=== PATIENT | male | born 1945 | race Caucasian/White ===

== ENCOUNTER 2016-10-16 07:02 | Emergency (ER) | payer MEDICARE ==
[2016-10-16] MEDS ORDERED: Ketorolac INJ* 30 MG/ML 1 ML VIAL IM ONE (07:38)
[2016-10-16] MEDS ORDERED: HYDROcodone/ACETAMIN 5-325 MG* 1 TAB PO ONE (08:30)
--- NOTE | 2016-10-16 08:44 | UC ---
Gris Weldon Edward, scribed for Senait Nick MD on 10/16/16 at 0710 . Upper Extremity HPI - HPI Summary HPI Summary: 71 y/o male presents to ED with left upper back pain and now shooting L arm pain. Patient's arm pain started out as soreness following an injury one week ago, but became worse last night. The pain starts in the back of the L shoulder and radiates down the L arm. Patient states a tree fell on the patient one week ago. He was cutting down a tree when it split and fell on the patient's R shoulder and face, knocking the patient to the ground. No LOC. No blood HEENT. The patient was standing on the ground when it happened and was wearing a helmet. PT wsa able to get up unassisted and continued to cut down trees. pt states has been stiff in his upper back since. PT states has been sleeping in a chair as has difficulty time getting comfortable. Pt states pain shoots from neck to left elbow along medial aspect. No extremity or hand weakness. No PATEL, vision changes. he patient states he was sore but was not in pain immediately after the accident. Pt states too APAP at 530 with little relif. Associated sx: ecchymosis on the R ear. Denies changes in color to the hands, nausea, diaphoresis, SOB and CP, abdominal pain. Pt is on ASA 81mg. PMHx DM, cardiac disease. Past medications reviewed upon visit. - History of Current Complaint Stated Complaint: LEFT ARM PAIN Hx Obtained From: Patient Onset/Duration: Gradual Onset, Lasting Hours - PAin started last night, Still Present Location Of Pain: Is Discrete @ - Back of R shoulder, Radiates To - Down L arm Associated Signs And Symptoms: Positive: Negative - No nausea, CP, SOB, diaphoresis Related History: Dominant Hand Right - Allergies/Home Medications Allergies/Adverse Reactions: Allergies Allergy/AdvReac Type Severity Reaction Status Date / Time Penicillins Allergy Unknown Rash Verified 10/16/16 07:19 Home Medications: Home Medications Acetaminophen [Tylenol] 975 mg PO Q6H PRN 10/16/16 [History Confirmed 10/16/16] PMH/Surg Hx/FS Hx/Imm Hx - Additional Past Medical History Additional PMH: Positive: arthritis, carpal tunnel. Negative: ME, CHF, COPD Previously Healthy: No Endocrine History: Diabetes Cardiovascular History: Cardiac Disease, Other Other Cardiovascular History: Heart Murmurs, Peripheral Vascular Disease Respiratory History: Pneumonia - Surgical History Surgical History: Yes Surgery Procedure, Year, and Place: OPEN HEART, aortic valve replacement, bilateral knee replacements - Family History Known Family History: Positive: Hypertension, Diabetes - Social History Occupation: Retired Lives: With Family Alcohol Use: None Substance Use Type: None Smoking Status (MU): Former Smoker Type: Cigarettes Amount Used/How Often: QUIT IN 1991 Review of Systems Constitutional: Negative Skin: Bruising - R ear Eyes: Negative ENT: Negative Respiratory: Negative - No SOB Cardiovascular: Negative - No CP Gastrointestinal: Negative - No nausea Genitourinary: Negative Motor: Negative Neurovascular: Negative Musculoskeletal: Myalgia - Pain in back of R shoulder radiating down to the L arm Neurological: Other - Dizziness immediately after the injury. None now Psychological: Negative All Other Systems Reviewed And Are Negative: Yes Physical Exam Triage Information Reviewed: Yes Appearance: Well-Appearing, Pain Distress - with movement Vital Signs: Initial Vital Signs Temp 97.8 F 10/16/16 07:04 Pulse 49 10/16/16 07:04 Resp 16 10/16/16 07:04 BP 147/81 10/16/16 07:04 Pulse Ox 96 10/16/16 07:04 Eye Exam: Normal ENT Exam: Normal ENT: Positive: Hearing grossly normal - assist devices, Pharynx normal, TMs normal Dental Exam: Normal Neck: Positive: Supple, Nontender - mild TTP left paracervical to left trapezius Pain increases with ROM of c spine and movement of LUE Respiratory Exam: Normal Respiratory: Positive: Chest non-tender, Lungs clear, Normal breath sounds, No respiratory distress Cardiovascular Exam: Normal Cardiovascular: Positive: RRR, No Murmur, Pulses Normal, Brisk Capillary Refill Abdominal Exam: Normal Abdomen Description: Positive: Nontender, No Organomegaly, Soft Bowel Sounds: Positive: Present Musculoskeletal: Positive: Other: - No pain spinous process c/t/l/s + TTP left paraspinal cervical on the left Pain increases with right lateral rotation to right and full flexion Pain increases over trapezius with abductioin left shoulder full flex/ext shoulder, elbow + supinate/pronate Neurological Exam: Normal Neurological: Positive: Other: - + thumb up, a ok, finger spread, finger cross When pt lateral rotates neck recreates paresthesia lue to medial ascpect elbow Psychological Exam: Normal Psychological: Positive: Normal Response To Family Skin Exam: Normal Skin: Positive: Other - small contusion left upper ear - no abrasion Diagnostics - Radiology CXR Xray Interpretation: Positive (See Comments) - Cardiomegaly with interstitial edema consistent with CHF. Radiology Interpretation Completed By: Radiologist CERVICAL SPINE XRAY Xray Interpretation: No Acute Changes - Limited examination of the cervical spine with degenerative disc disease. Radiology Interpretation Completed By: Radiologist - EKG Cardiac Rate: Bradycardia Cardiac Rhythm: Sinus: Normal - 07:06 - RBBB, no acute changes from 03/09/16. Re-Evaluation - Re-Evaluation 1 Re-Evaluation Time: 08:25 Change: Improved - with Toradol will place in sling give Jefferson ( driving) awaiting imaging Second Eval Re-Evaluation Time: 09:25 Change: Improved - Pt markedly improved following sling and Jefferson Reviewed images with pt and spouse - aware of limitation second to habitus and CHF Pt without sob, peripheral edema. Pt is on Lasix reviewed with pt Jefferson heat stretch and pcp f.u return precautions discussed pt comfortable and in agreement with plan Upper Extremity Course/Dx - Course Course Of Treatment: 71 y/o male presents to ED with L arm pain and left upper trapezius pain. Patient's arm pain started out as soreness following an injury one week ago, but became worse last night. The pain starts in the back of the L shoulder and radiates down the L arm. Exam reveals left trapezius pain and spasm, mild left cervical paraspinal pain. Pt neurologically intact with reproducible pain and radiculopathy with movement. In the UC course, patient was given Toradol. On re-eval @ 08:31, patient notes slight relief from Toradol. Patient will be given hydrocodone and an arm sling with marked improvement. imaging did not reveal acute fx although somewhat limted second to habitus. reviewed with pt limitation as well as chf on CXR - Pt to call PCP on Tuesday. Pt was discharged home. heat. stretch. sling for comfort. Jefferson (reviewed med, precautions). Blood pressure noted and patient informed to follow up with PCP. PT and comfortable and in agreement with plan - Differential Dx/Diagnosis Provider Diagnoses: muscle spasm, radicular pain LUE Discharge - Discharge Plan Condition: Stable Disposition: HOME Prescriptions: HYDROcodone/ACETAMIN 5-325 MG* [Jefferson 5-325 TAB*] 1 - 2 tab PO Q6H PRN #15 tab MDD 8 PRN Reason: Pain Patient Education Materials: Muscle Spasm (ED), Cervical Radiculopathy (ED) Referrals: Riana Valdes MD [Primary Care Provider] - Additional Instructions: - Okay to take Jefferson (1-2 tablets) every 6 hours as needed for pain. This medication contains a narcotic. Do NOT drive, operate machinery, drink alcohol while taking Jefferson. This medication may cause constipation - use a stool softner daily while taking this medication - Apply heat (20 minutes at a time) 2-3 time a day - slow, gentle stretching exercises - Wear arm sling for support - Okay to take ibuprofen (advil, motrin) 400mg every 8 hours as needed - contact your doctor to schedule a follow-up appointment. Contact your doctor or return for increased pain, arm or leg weakness, shortness of breath, vomiting or any other questions or concerns The documentation as recorded by the Gris montiel Edward accurately reflects the service I personally performed and the decisions made by , Senait iNck MD.
--- NOTE | 2016-10-16 09:04 | RAD ---
Indication: Left-sided trapezius pain, back pain 3 views of the cervical spine demonstrates only the first 4 vertebral bodies to be visualized. Degenerative disc disease is noted with no fracture of C1-C4 identified. There is likely degenerative disc disease at C5-C6 and C3-C4. IMPRESSION: Limited examination of the cervical spine with degenerative disc disease.
--- NOTE | 2016-10-16 09:05 | RAD ---
Indication: Left paraspinal pain. 2 views of the chest are reviewed. Comparison is made with previous exam dated March 29, 2015. Interstitial edema consistent with CHF is noted. Cardiomegaly is noted. Patient is status post transsternal thoracotomy. IMPRESSION: Cardiomegaly with interstitial edema consistent with CHF.
[2016-10-16 09:46] VITALS: BP 160/85
== END 2016-10-16 09:40 | disposition home or self-care (01) ==
LOC: UCEAST 07:02
DX: M62.830 Muscle spasm of back (principal); M54.12 Radiculopathy, cervical region
CPT/HCPCS: 71020; 72040; 93005; 96372; 99213; G0463; J1885

== ENCOUNTER 2016-12-25 20:34 | Emergency (ER) | payer MEDICARE ==
[2016-12-25 20:42] VITALS: BP 156/83
--- NOTE | 2016-12-25 21:32 | RAD ---
Indication: RIGHT knee pain following injury. Bilateral knee replacement in 2006. Comparison: March 22, 2007 immediate postop exam. Technique: RIGHT knee: AP, tunnel, crosstable lateral, sunrise views. Report: Small joint effusion without gross fat fluid level. Negative for compelling stigmata of prosthesis loosening or periprosthetic fracture. Mild anterior soft tissue swelling. Vascular calcifications. IMPRESSION: Small joint effusion and anterior soft tissue swelling. Negative for fracture, stigmata of prosthesis loosening, or malalignment.
[2016-12-25] MEDS ORDERED: oxyCODONE/Acetamin 5/325 MG* TAB PO ONE (23:13)
[2016-12-26] MEDS ORDERED: oxyCODONE/Acetamin 5/325 MG* TAB PO ONE (00:06)
--- NOTE | 2016-12-26 00:08 | ED ---
Lower Extremity - HPI Summary HPI Summary: 71M presents with injury to right knee. 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 He has a prosthetic knee. He has 10/10 pain especially when he raises his leg. tetanus is up to date he believes. has abrasion on right taylor. was able to ambulate. pain is sharp and is over his patella. - History of Current Complaint Chief Complaint: EDExtremityLower Stated Complaint: TREE FELL/RIGHT KNEE INJURY Time Seen by Provider: 12/25/16 22:57 Pain Intensity: 8 - Allergies/Home Medications Allergies/Adverse Reactions: Allergies Allergy/AdvReac Type Severity Reaction Status Date / Time Penicillins Allergy Unknown Rash Verified 12/25/16 20:42 PMH/Surg Hx/FS Hx/Imm Hx Endocrine/Hematology History: Denies: Hx Diabetes, Hx Thyroid Disease Cardiovascular History: Reports: Hx Peripheral Vascular Disease, Other Cardiovascular Problems/Disorders - VALVE REPLACEMENT Denies: Hx Congestive Heart Failure, Hx Hypertension, Hx Pacemaker/ICD Respiratory History: Reports: Hx Chronic Obstructive Pulmonary Disease (COPD), Hx Pneumonia Denies: Hx Asthma Comment Only: Other Respiratory Problems/Disorders - Quit in 1991 GI History: Denies: Hx Ulcer History: Denies: Hx Dialysis, Hx Renal Disease Musculoskeletal History: Reports: Hx Arthritis - bilat knee replacement, Other Musculoskeletal History - carple tunel Sensory History: Reports: Hx Contacts or Glasses, Hx Macular Degeneration, Hx Hearing Problem Denies: Hx Cataracts, Hx Eye Injury, Hx Eye Prosthesis, Hx Glaucoma, Hx Vision Problem, Hx Deafness, Hx Hearing Aid Opthamlomology History: Reports: Hx Contacts or Glasses, Hx Macular Degeneration Denies: Hx Cataracts, Hx Eye Injury, Hx Eye Prosthesis, Hx Glaucoma, Hx Vision Problem Neurological History: Denies: Hx Dementia, Hx Developmental Delay, Hx Headaches, Hx Migraine, Hx Nerve Disease, Hx Seizures, Hx Spinal Cord Injury, Hx Transient Ischemic Attacks (TIA) - Surgical History Surgery Procedure, Year, and Place: OPEN HEART, aortic valve replacement, bilateral knee replacements Hx Anesthesia Reactions: No Infectious Disease History: No Infectious Disease History: Denies: Hx Hepatitis, Hx Human Immunodeficiency Virus (HIV), Hx Shingles, Hx Tuberculosis, Traveled Outside the [place] in Last 30 Days - Family History Known Family History: Positive: Hypertension, Diabetes - Social History Alcohol Use: None Substance Use Type: Reports: None Hx Tobacco Use: Yes Smoking Status (MU): Former Smoker Type: Cigarettes Amount Used/How Often: QUIT IN 1991 Review of Systems Negative: Fever Negative: Chest Pain Negative: Shortness Of Breath Positive: Myalgia - right knee All Other Systems Reviewed And Are Negative: Yes Physical Exam Triage Information Reviewed: Yes Vital Signs On Initial Exam: Initial Vitals Temp Pulse Resp BP Pulse Ox 98.3 F 66 18 156/83 99 12/25/16 20:36 12/25/16 20:36 12/25/16 20:36 12/25/16 20:36 12/25/16 20:36 Vital Signs Reviewed: Yes Appearance: Positive: Well-Appearing Skin: Positive: Warm, Dry Head/Face: Positive: Normal Head/Face Inspection Eyes: Positive: Normal, Conjunctiva Clear Respiratory/Lung Sounds: Positive: Clear to Auscultation, Breath Sounds Present Cardiovascular: Positive: Normal, RRR Musculoskeletal: Positive: Strength/ROM Intact - right knee, Edema Right - knee , Other - abrasion to taylor of right knee, good pulses, tender over right knee - Edmond Coma Scale Coma Scale Total: 15 Diagnostics - Vital Signs Vital Signs Temp Pulse Resp BP Pulse Ox 12/26/16 00:01 18 12/25/16 20:36 98.3 F 66 18 156/83 99 - Laboratory Lab Statement: Any lab studies that have been ordered have been reviewed, and results considered in the medical decision making process. - Radiology knee Xray Interpretation: No Acute Changes - IMPRESSION: Small joint effusion and anterior soft tissue swelling. Negative for fracture, stigmata of prosthesis loosening, or malalignment. Radiology Interpretation Completed By: Radiologist Lower Extremity Course/Dx - Course Course Of Treatment: 71M presents with injury to right knee. 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 He has a prosthetic knee. He has 10/10 pain especially when he raises his leg. tetanus is up to date he believes. has abrasion on right taylor. was able to ambulate. pain is sharp and is over his patella. xray normal. cleaned abrasions. patient states is to much pain so will give short course of pain medication. patient understands and agrees with plan. - Diagnoses Differential Diagnosis/HQI/PQRI: Positive: Contusion, Fracture (Closed), Sprain , Strain Provider Diagnoses: Right knee injury Discharge - Discharge Plan Condition: Good Disposition: HOME Prescriptions: oxyCODONE/Acetamin 5/325 MG* [Percocet 5/325 TAB*] 1 tab PO Q6H PRN #8 tab MDD 4 PRN Reason: Pain Patient Education Materials: Knee Pain (ED) Referrals: Riana Valdes MD [Primary Care Provider] - Additional Instructions: Take Tylenol every 6 hours as needed for pain Apply ice, rest, elevate Follow up with primary care physician within 5 days Return to ED if develop any new or worsening symptoms
== END 2016-12-26 00:20 | disposition home or self-care (01) ==
LOC: ED 20:34
DX: S89.91XA Unspecified injury of right lower leg, initial encounter (principal); W20.8XXA Other cause of strike by thrown, projected or falling object, initial encounter; Y93.H2 Activity, gardening and landscaping; Y92.9 Unspecified place or not applicable; I73.9 Peripheral vascular disease, unspecified; Z96.653 Presence of artificial knee joint, bilateral; Z87.891 Personal history of nicotine dependence
CPT/HCPCS: 99282; A9270-GY

== ENCOUNTER 2018-05-12 10:07 | Emergency (ER) | payer MEDICARE ==
[2018-05-12 10:27] VITALS: BP 109/66
--- NOTE | 2018-05-12 12:03 | UC ---
Respiratory Complaint HPI - HPI Summary HPI Summary: 3 days of cough, congestion, sinus pressure, headache and achiness. Has some mild nausea. Denies fever. Up-to-date flu shot. - History of Current Complaint Chief Complaint: UCGeneralIllness Stated Complaint: SINUS, CONGESTION Time Seen by Provider: 05/12/18 11:16 Hx Obtained From: Patient, Family/Supervisor [employer] - Onset/Duration: Gradual Onset, Lasting Days, Still Present Timing: Constant Severity Initially: Moderate Severity Currently: Moderate Pain Intensity: 3 Pain Scale Used: 0-10 Numeric Character: Cough: Nonproductive Aggravating Factors: Nothing Alleviating Factors: Nothing Associated Signs And Symptoms: Positive: URI, Nasal Congestion, Sinus Discomfort. Negative: Dyspnea, Fever, Chills, Wheezing - Allergies/Home Medications Allergies/Adverse Reactions: Allergies Allergy/AdvReac Type Severity Reaction Status Date / Time Penicillins Allergy Rash Verified 05/12/18 10:28 PMH/Surg Hx/FS Hx/Imm Hx Cardiovascular History: Cardiac Disease Respiratory History: COPD - Surgical History Surgical History: Yes Surgery Procedure, Year, and Place: OPEN HEART, aortic valve replacement, bilateral knee replacements - Family History Known Family History: Positive: Hypertension, Diabetes - Social History Alcohol Use: None Substance Use Type: None Smoking Status (MU): Former Smoker Type: Cigarettes Amount Used/How Often: QUIT IN 1991 Review of Systems All Other Systems Reviewed And Are Negative: Yes Constitutional: Positive: Fatigue. Negative: Fever ENT: Positive: Nasal Discharge, Sinus Congestion Respiratory: Positive: Cough Cardiovascular: Positive: Negative Gastrointestinal: Positive: Nausea. Negative: Vomiting Genitourinary: Positive: Negative Musculoskeletal: Positive: Myalgia Neurological: Positive: Headache Physical Exam Triage Information Reviewed: Yes Appearance: Well-Appearing, No Pain Distress, Well-Nourished Vital Signs: Initial Vital Signs Temp 98 F 05/12/18 10:23 Pulse 57 05/12/18 10:23 Resp 16 05/12/18 10:23 BP 109/66 05/12/18 10:23 Pulse Ox 98 05/12/18 10:23 Laboratory Tests 05/12/18 11:52 Influenza A (Rapid) Negative Influenza B (Rapid) Negative Vital Signs Reviewed: Yes Eyes: Positive: Conjunctiva Clear ENT: Positive: Hearing grossly normal, Pharynx normal, Other - 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 Neck: Positive: Supple, Nontender, No Lymphadenopathy Respiratory: Positive: No respiratory distress, No accessory muscle use, Crackles - LEFT LUNG BASE FINE RALES Cardiovascular Exam: Normal Abdomen Description: Positive: Soft Musculoskeletal: Positive: No Edema Neurological: Positive: Alert Psychological: Positive: Age Appropriate Behavior Skin: Negative: Rashes UC Diagnostic Evaluation - Laboratory O2 Sat by Pulse Oximetry: 98 - Radiology Radiology Interpretation Completed By: Radiologist Summary of Radiographic Findings: CXR: Prominent interstitial markings consistent with chronic interstitial disease. Underlying CHF should BE considered and clinical correlation is suggested. Respiratory Course/Dx - Differential Dx/Diagnosis Provider Diagnosis: Acute bronchitis Discharge - Sign-Out/Discharge Documenting (check all that apply): Patient Departure All imaging exams completed and their final reports reviewed: Yes - Discharge Plan Condition: Stable Disposition: HOME Prescriptions: Doxycycline Monohydrate 1 cap PO BID #20 cap Patient Education Materials: Acute Bronchitis (ED) Referrals: Riana Valdes MD [Primary Care Provider] - If Needed Additional Instructions: CHEST XRAY TODAY SHOWS Prominent interstitial markings consistent with chronic interstitial disease. NO ACUTE CHANGES. GIVEN YOUR COMPROMISED LUNGS YOU ARE AT INCREASED RISK OF DEVELOPING BACTERIAL INFECTION SO WILL COVER WITH DOXY. TAKE FOR FULL COURSE. THIS MED CAN MAKE YOU MORE SENSITIVE TO UV RAYS SO TAKE APPROPRIATE PRECAUTIONS. FLU SWAB NEGATIVE. FOLLOW-UP WITH YOUR PLUMONOLOGIST. - Billing Disposition and Condition Condition: STABLE Disposition: Home
[2018-05-12 12:04] LABS: Influenza A Molecular NEGATIVE (Negative); Influenza B Molecular NEGATIVE (Negative)
== END 2018-05-12 12:50 | disposition home or self-care (01) ==
LOC: UCEAST 10:07
DX: J44.0 Chronic obstructive pulmonary disease with (acute) lower respiratory infection (principal); J20.9 Acute bronchitis, unspecified; R11.0 Nausea; Z87.891 Personal history of nicotine dependence; Z88.0 Allergy status to penicillin
CPT/HCPCS: 71046; 99212; G0463

== ENCOUNTER 2018-07-16 08:44 | Emergency (ER) | payer MEDICARE ==
--- OUTSIDE RECORDS SUMMARY | 2018-07-16 08:56 | XMS REPORT | Continuity of Care Document ---
:1945 External Reference #:[id number] Author Name Kathia Pompa Care Team Providers Name Role Phone Riana Valdes, Care Team Information Psychiatric Aides Teacher Unavailable Riana Valdes, Primary Care Physician Unavailable Payers Date Identification Numbers Payment Provider Subscriber Effective: 2009 Policy Number: [id number] Medicare Part B Marcelino Ho August PayID: [id number] [address] [place] [address] Effective: 2016 Policy Number: [id number] [facility] Marcelino Ho August PayID: [id number] [address] [place] [address] Effective: 2009 Policy Number: [id number] Medicare Part B Marcelino Ho August Expires: 2018 PayID: [id number] [address] [place] [address] Expires: 2016 Policy Number: [id number] [facility] Marcelino Ho August PayID: [id number] [address] [address] [place] [address] Advance Directives Description No Information Available Problems Date Description Provider Status Onset: 01/08/2013 Coronary arteriosclerosis Volodymyr Bundy MD Active Onset: 02/28/2012 Aortic valve disorder Volodymyr Bundy MD Active Family History Date Family Member(s) Observation Comments Father 66 years old Father Colon Cancer Mother No significant health issues Mother Alive AT 93 yo Social History Type Date Description Comments Sex Unknown Tobacco Use Start: Unknown End: Unknown Patient is a former smoker Allergies, Adverse Reactions, Alerts Date Description Reaction Status Severity Comments 06/20/2009 Penicillins Unknown To PT - Years Ago Active Medications Medication Date Status Form Strength Qnty SIG Indications Ordering Provider Rosuvastatin 04/17 Active Tablets 40mg 90tab Take 1 Theresa s Tablet By Jessica, Mouth Every PALLIATIVE CARE SPECIALIST Day Aspirin 06/22 Active Tablets 81mg 1 by mouth every day MD Gregor Metformin HCL 12/05 Active Tablets 500mg 180ta 4 PO qd bs Stool Softener 04/05 Active Capsules 100mg 1 PO qd Vitamin C 04/04 Active Tablets 1000mg 1 PO qd Potassium Chloride 01/03 Active Tablets 10Meq 30tab 1 PO qd Unknown ER s Nasal [place] 01/03 Active Solution 0.05% 1 [place] Each Nostril Furosemide Active Tablets 20mg 1 PO qd Vitamin D3 Active Capsules 2000Unit 1 PO qd Tamsulosin HCL Active Capsules 0.4mg 1 by mouth two times a day Betamethasone Active Gel 0.05% twice daily Unknown Dipropionate Nov Fluocinonide Active Solution 0.05% apply to scalp needed Cetirizine HCL Active Tablets 10mg 1 by mouth every day needed Myrbetriq Active Tablets 25mg 2 by mouth ER 24HR every day Multi Vitamin Active Tablets 1 by mouth Unknown every day Vitamin B-Complex Active Tablets 2000 mgpo every day Cyproheptadine HCL Active Tablets 4mg 1-2 every night AT bedtime Symbicort Active Aerosol 160-4.5mc inhale 2 Unknown /0000 g/Act puff by inhalation route 2 times every day in the morning and evening Crestor 08/20 Hx Tablets 40mg 90tab take 1 Theresa s tablet by Jessica, - mouth every PALLIATIVE CARE SPECIALIST Incruse Ellipta Hx Aerosol 62.5mcg/I inhale 1 Unknown /0000 nh puff every - day 10/19 Anoro Ellipta Hx Aerosol 62.5-25mc inhale 1 Unknown /0000 g/Inh puff by - inhalation 06/02 route day AT the same time each day Methylprednisolone 00 Hx Tablets 4mg 1 PO every Unknown /0000 other day - 06/02 Immunizations Description No Information Available Vital Signs Date Vital Result Comment 06/27/2018 2:00pm Height 67 inches 5'7" Weight 241.00 lb BMI (Body Mass Index) 37.7 kg/m2 BP Systolic Left Arm 106 mmHg BP Diastolic Left Arm 72 mmHg Heart Rate 68 /min 10/19/2017 10:27am Height 67 inches 5'7" Weight 231.00 lb BMI (Body Mass Index) 36.2 kg/m2 BP Systolic Left Arm 118 mmHg BP Diastolic Left Arm 76 mmHg Heart Rate 54 /min 02/17/2017 3:11pm Height 67 inches Weight 231.25 lb BMI (Body Mass Index) 36.2 kg/m2 BP Systolic 108 mmHg BP Diastolic 68 mmHg Heart Rate 62 /min O2 % BldC Oximetry 97 % 06/25/2016 2:02pm Height 67 inches Weight 243.00 lb BMI (Body Mass Index) 38.1 kg/m2 BP Systolic 110 mmHg BP Diastolic 72 mmHg Heart Rate 61 /min 06/23/2015 12:15pm Height 67 inches Weight 232.00 lb BMI (Body Mass Index) 36.3 kg/m2 BP Systolic 100 mmHg BP Diastolic 66 mmHg Heart Rate 58 /min 10/21/2014 3:11pm Height 67 inches Weight 243.00 lb BMI (Body Mass Index) 38.1 kg/m2 BP Systolic 114 mmHg BP Diastolic 72 mmHg Heart Rate 64 /min 12/20/2013 1:53pm Height 67 inches Weight 236.00 lb BMI (Body Mass Index) 37.0 kg/m2 BP Systolic 104 mmHg BP Diastolic 66 mmHg Heart Rate 72 /min 04/26/2013 1:24pm Height 67 inches Weight 253.00 lb BMI (Body Mass Index) 39.6 kg/m2 BP Systolic 106 mmHg BP Diastolic 84 mmHg Heart Rate 76 /min 01/08/2013 3:23pm Height 67 inches Weight 232.31 lb BMI (Body Mass Index) 36.4 kg/m2 BP Systolic 112 mmHg BP Diastolic 82 mmHg Heart Rate 80 /min 10/26/2012 2:51pm Height 67 inches Weight 236.00 lb BMI (Body Mass Index) 37.0 kg/m2 BP Systolic 100 mmHg BP Diastolic 75 mmHg Heart Rate 66 /min O2 % BldC Oximetry 95 % 04/27/2012 1:45pm BP Systolic 140 mmHg BP Diastolic 76 mmHg 04/27/2012 1:45pm BP Systolic 142 mmHg BP Diastolic 88 mmHg 02/28/2012 2:55pm Height 67 inches Weight 246.00 lb BMI (Body Mass Index) 38.5 kg/m2 BP Systolic 116 mmHg BP Diastolic 78 mmHg Heart Rate 72 /min 02/18/2011 1:39pm Height 67 inches Weight 248.00 lb BMI (Body Mass Index) 38.8 kg/m2 BP Systolic 112 mmHg BP Diastolic 76 mmHg Heart Rate 76 /min 12/22/2009 9:41am Height 67 inches Weight 251.00 lb BMI (Body Mass Index) 39.3 kg/m2 BP Systolic 126 mmHg BP Diastolic 86 mmHg Heart Rate 72 /min 06/20/2009 2:17pm Height 67 inches Weight 250.00 lb BMI (Body Mass Index) 39.2 kg/m2 BP Systolic 124 mmHg BP Diastolic 90 mmHg Heart Rate 60 /min Results Test Date Facility Test Result H/L Range Note Order 10/19/2017 [facility], [facility] EKG <pending> Protime W/Inr 03/26/2013 [employer] [facility] 2.0 1 ([employer] [address] Normalized Ratio [facility] [place] [address] [phone] Protime W/Inr 03/16/2013 [employer] [facility] 1.7 1 ([employer] [address] Normalized Ratio [facility] [place] [address] [phone] Protime W/Inr 02/23/2013 [employer] [facility] 3.0 1 ([employer] [facility] [address] [place] [place] [address] [phone] Protime W/Inr 02/09/2013 [employer] [facility] 3.2 1 ([employer] [facility] [address] [place] [address] [phone] Protime W/Inr 02/01/2013 [employer] [facility] 3.3 1 ([employer] [facility] [address] [place] [place] [address] [phone] Prothrombin Time 32.9 1 Protime W/Inr 01/26/2013 [employer] [facility] 2.6 1 ([facility] [employer] [facility] [address] [place] [address] [phone] Prothrombin Time 25.5 1 Protime W/Inr 01/22/2013 [employer] [facility] 1.5 1 ([facility] [employer] [facility] [address] [place] [place] [address] [phone] Prothrombin Time 15.4 1 Protime W/Inr 01/15/2013 [employer] [facility] 1.5 1 ([facility] [employer] [facility] [address] [place] [place] [address] [phone] Prothrombin Time 13.7 1 Protime W/Inr 01/10/2013 [employer] [facility] 1.2 1 ([facility] [employer] [facility] [address] [place] [place] [address] [phone] Protime W/Inr 01/02/2013 [employer] [facility] 1.3 1 ([facility] [employer] [facility] [address] [place] [place] [address] [phone] Protime W/Inr 12/29/2012 [employer] [facility] 1.8 1 ([facility] [employer] [facility] [address] [place] [place] [address] [phone] Prothrombin Time 20.0 1 Protime W/Inr 12/25/2012 [employer] [facility] 1.2 1 ([facility] [employer] [facility] [address] [place] [place] [address] [phone] Protime W/Inr 12/22/2012 [employer] [facility] 1.2 1 ([facility] [employer] [facility] [address] [place] [place] [address] [phone] Protime W/Inr 12/21/2012 [employer] [facility] 1.1 1 ([facility] [employer] [facility] [address] [place] [place] [address] [phone] Protime W/Inr 12/20/2012 [employer] [facility] 1.07 1 ([employer] [facility] [address] [place] [place] [address] [phone] Procedures Date Code Description Status 10/19/2017 59721 Electrocardiogram Complete Completed 02/17/2017 66468 Duplex Scan Extracranial Arteries, Complete Bilateral Completed Study 02/17/2017 61346 Duplex Scan Extracranial Arteries, Complete Bilateral Completed Study 02/17/2017 12903 Echocardiography, Tranthoracic Real-Time Image Completed Documentation 02/17/2017 08675 Cardiovascular Stress Test Interpretation & Report Only Completed 02/17/2017 62953 Cardiovascular Stress Test Interpretation & Report Only Completed 02/17/2017 78655 Cardiovascular Stress Test Physician Supervision Only Completed 02/17/2017 06910 Cardiovascular Stress Test Physician Supervision Only Completed 02/17/2017 81400 Myocardial Perfusion Imaging Tomographic (Spect) Multiple Completed Studies 02/17/2017 87737 Myocardial Perfusion Imaging Tomographic (Spect) Multiple Completed Studies 06/25/2016 10132 Electrocardiogram Complete Completed 10/21/2014 63730 Electrocardiogram Complete Completed 04/26/2013 85934 Electrocardiogram Complete Completed 04/12/2013 62856 ECG Record/Review/Interpret,24-hour attended monitoring Pt Completed Demand 01/08/2013 30489 Echocardiography, Tranthoracic Real-Time Image Completed Documentation 12/07/2012 57770 Catheter Placement In Coronary Artery Completed 10/26/2012 58682 Echocardiography, Tranthoracic Real-Time Image Completed Documentation 04/27/2012 94853 Duplex Scan Aorta/Inf Vena Cava/Iliac Vasc/Bypass GRFT Completed Uni/Fol-Up 04/27/2012 36004 Duplex Scan Extracranial Arteries, Complete Bilateral Completed Study 04/27/2012 90898 Echocardiography, Tranthoracic Real-Time Image Completed Documentation 02/28/2012 55311 Electrocardiogram Complete Completed 02/18/2011 22725 Echocardiography, Tranthoracic Real-Time Image Completed Documentation 02/18/2011 83156 Electrocardiogram Complete Completed 12/22/2009 72802 ECHO Transthoracic Inc Performance Continuous Completed Electrocardio 12/22/2009 18763 Doppler Echocardiography Color Flow Velocity Mapping Completed 12/22/2009 32551 Doppler Echocardiography Complete Completed 06/20/2009 43763 Echocardiography, Tranthoracic Real-Time Image Completed Documentation 06/20/2009 43257 Electrocardiogram Complete Completed Encounters Type Date Location Provider Dx Diagnosis Office Visit 06/27/2018 [facility] AT Volodymyr Bundy MD I71.2 Thoracic aortic 2:00p [place] aneurysm, without rupture 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 I10 Essential (primary) hypertension E11.9 Type 2 diabetes mellitus without complications E78.5 Hyperlipidemia, unspecified I48.0 Paroxysmal atrial fibrillation I65.23 Occlusion and stenosis of bilateral carotid arteries R60.0 Localized edema Z95.2 Presence of prosthetic heart valve 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 E66.01 Morbid (severe) obesity due to excess calories Office Visit 10/19/2017 10:30a [facility] Cardiology AT Volodymyr Bundy, I11.9 Hypertensive heart [place] MD disease without heart failure I25.10 Athscl heart disease of [place] coronary artery w/o ang pctrs Z95.2 Presence of prosthetic heart valve E66.09 Other obesity due to excess calories E11.69 Type 2 diabetes mellitus with other specified complication Z79.02 termite control technician (current) use of antithrombotics/antiplatelets E78.5 Hyperlipidemia, unspecified I48.0 Paroxysmal atrial fibrillation I65.23 Occlusion and stenosis of bilateral carotid arteries R60.0 Localized edema I71.2 Thoracic aortic aneurysm, without rupture Z68.36 Body mass index (BMI) 36.0-36.9, adult Office Visit 02/17/2017 10:15a [facility] Cardiology AT [facility], I25.10 Athscl heart [place] PALLIATIVE CARE SPECIALIST disease of [place] coronary artery w/o ang pctrs Z95.2 Presence of prosthetic heart valve I10 Essential (primary) hypertension Z79.899 Other penitentiary (current) drug therapy Office 06/25/2016 [facility] Z79.02 USP (current) use of Visit 8:14a Cardiology AT MD Gregor antithrombotics/antiplatelets [place] E78.5 Hyperlipidemia, unspecified E11.9 Type 2 diabetes mellitus without complications I48.0 Paroxysmal atrial fibrillation Z95.2 Presence of prosthetic heart valve Plan of Treatment Future Appointment(s):03/12/2019 11:30 am - Volodymyr Bundy MD at [facility] Cardiology AT Fnjcclftfzlg65/26/2019 - Volodymyr Bundy MDI71.2 Thoracic aortic aneurysm, without iafvcvsM05.0 Rheumatic mitral oilvulkpB58 Essential (primary) usakikqqmebyX32.9 Type 2 diabetes mellitus without tecoqhztbyciwQ79.5 Hyperlipidemia, xzmpjxlimhvQ70.0 Paroxysmal atrial yyiuwozdsltsC89.23 Occlusion and stenosis of bilateral carotid sprbzhnnU99.0 Localized tkjpuP11.2 Presence of prosthetic heart fhuklZ97.82 USP (current) use of kkeksfoD31.01 Morbid (severe) obesity due to excess calories
--- NOTE | 2018-07-16 09:25 | ED ---
Lower Extremity - HPI Summary HPI Summary: This patient is a 73 year old M presenting to [facility] accompanied by a woman and young boy with a chief complaint of bilateral calf pain, worse in the left, since three days ago. The patient rates the pain 6/10 in severity. Symptoms alleviated by movement. Patient reports LE edema, insomnia, and ecchymosis and erythema of the left calf. Patient denies fever, chills, N/V, CP, or SOB. The patient states that his pain is worse at night when he is relaxing, and he has poor circulation of his LEs normally. The pain was in both legs until last night, where it was much worse in his left. He has a wound on his left calf that has been present for 2 months. He is not being followed by wound care. He has taken antibiotics for this wound, but is not on them now. He is not on blood thinners. Allergy to penicillin. He did not bring his hearing aids to the ED and has difficulty hearing the doctor. He recently had a breathing test done at his subsorter 5 days ago and doesnt know the results yet. The patient denies recent travel. PMHX DVT, bad leg circulation, hearing problems, COPD, Diabetes. No PMHx CHF, cardiac problems. RX Metformin. Vitals in the room: HR 65 bpm, BP 114/74. - History of Current Complaint Chief Complaint: EDExtremityLower Stated Complaint: PAIN IN LEFT CALF PER PT Time Seen by Provider: 07/16/18 09:00 Hx Obtained From: Patient Severity Currently: Moderate Pain Intensity: 6 Pain Scale Used: 0-10 Numeric Timing: Constant Location: Is Discrete @ - LEs Associated Signs And Symptoms: Positive: Swelling, Redness, Bruising Aggravating Factor(s): Other - relaxing - Risk Factors Gout Risk Factors: Age Over 40, Male, Diabetes DVT Risk Factors: Prior DVT - Allergies/Home Medications Allergies/Adverse Reactions: Allergies Allergy/AdvReac Type Severity Reaction Status Date / Time Penicillins Allergy Rash Verified 05/12/18 10:28 PMH/Surg Hx/FS Hx/Imm Hx Endocrine/Hematology History: Reports: Hx Diabetes Denies: Hx Thyroid Disease Cardiovascular History: Reports: Hx Peripheral Vascular Disease, Other Cardiovascular Problems/Disorders - VALVE REPLACEMENT Denies: Hx Congestive Heart Failure, Hx Hypertension, Hx Pacemaker/ICD Respiratory History: Reports: Hx Chronic Obstructive Pulmonary Disease (COPD) - inhalers, Hx Pneumonia Denies: Hx Asthma Comment Only: Other Respiratory Problems/Disorders - Quit in 1991 GI History: Denies: Hx Ulcer History: Denies: Hx Dialysis, Hx Renal Disease Musculoskeletal History: Reports: Hx Arthritis - bilat knee replacement, Other Musculoskeletal History - carple tunel Sensory History: Reports: Hx Contacts or Glasses, Hx Macular Degeneration, Hx Hearing Problem Denies: Hx Cataracts, Hx Eye Injury, Hx Eye Prosthesis, Hx Glaucoma, Hx Vision Problem, Hx Deafness, Hx Hearing Aid Opthamlomology History: Reports: Hx Contacts or Glasses, Hx Macular Degeneration Denies: Hx Cataracts, Hx Eye Injury, Hx Eye Prosthesis, Hx Glaucoma, Hx Vision Problem Neurological History: Denies: Hx Dementia, Hx Developmental Delay, Hx Headaches, Hx Migraine, Hx Nerve Disease, Hx Seizures, Hx Spinal Cord Injury, Hx Transient Ischemic Attacks (TIA) - Surgical History Surgery Procedure, Year, and Place: OPEN HEART, aortic valve replacement, bilateral knee replacements Hx Anesthesia Reactions: No Infectious Disease History: No Infectious Disease History: Denies: Hx Hepatitis, Hx Human Immunodeficiency Virus (HIV), Hx Shingles, Hx Tuberculosis, Traveled Outside the [place] in Last 30 Days - Family History Known Family History: Positive: Hypertension, Diabetes - Social History Lives: With Family Alcohol Use: None Substance Use Type: Reports: None Hx Tobacco Use: Yes Smoking Status (MU): Former Smoker Type: Cigarettes Amount Used/How Often: QUIT IN 1991 Review of Systems Negative: Fever, Chills Negative: Chest Pain Negative: Shortness Of Breath Negative: Vomiting, Nausea Positive: Myalgia - bilateral LE, Edema - LE Positive: Rash, Bruising Neurological: Other - insomnia All Other Systems Reviewed And Are Negative: Yes Physical Exam - Summary Physical Exam Summary: GENERAL: Patient is a well-developed and nourished male who is lying comfortable in the stretcher. Patient is not in any acute respiratory distress. HEAD AND FACE: Normocephalic EYES: PERRLA, EOMI x 2. EARS: Hearing grossly intact. MOUTH: Oropharynx within normal limits. NECK: Supple, trachea is midline, no adenopathy, no JVD, no carotid bruit. CHEST: Symmetric, no tenderness at palpation LUNGS: Clear to auscultation bilaterally. Crackles on the right side. CVS: Regular rate and rhythm, S1 and S2 present, no murmurs or gallops appreciated. ABDOMEN: Soft, non-tender. Bowel sounds are normal. No abdominal abnormal pulsations. EXTREMITIES: Full ROM in all major joints. Bilateral pedal edema, worse in the right. Area of erythema and ulceration with active drainage on the lower left leg. NEURO: Alert and oriented x 3. No acute neurological deficits. Speech is normal and follows commands. SKIN: Dry and warm Triage Information Reviewed: Yes Vital Signs On Initial Exam: Initial Vitals Temp Pulse Resp BP Pulse Ox 97.8 F 61 16 145/73 97 07/16/18 08:45 07/16/18 08:45 07/16/18 08:45 07/16/18 08:45 07/16/18 08:45 Vital Signs Reviewed: Yes Diagnostics - Vital Signs Vital Signs Temp Pulse Resp BP Pulse Ox 07/16/18 08:45 97.8 F 61 16 145/73 97 - Laboratory Result Diagrams: 07/16/18 11:04 07/16/18 11:04 Lab Statement: Any lab studies that have been ordered have been reviewed, and results considered in the medical decision making process. - Radiology CXR Radiology Interpretation Completed By: Radiologist Summary of Radiographic Findings: 1. FINDINGS MOST CONSISTENT WITH CHRONIC INTERSTITIAL LUNG DISEASE, UNCHANGED. 2. CHRONIC DORSAL VERTEBRAL BODY COMPRESSION FRACTURES UNCHANGED. 3. POSTSURGICAL CHANGES. ED physician has reviewed this report - Ultrasound No standard instances Ultrasound Interpretation Completed By: Radiologist Summary of Ultrasound Findings: FINDINGS MOST CONSISTENT WITH BILATERAL CHRONIC DEEP VENOUS THROMBOSIS WITHIN. THE FEMORAL AND POPLITEAL VEINS. ED physician has reviewed this report. Lower Extremity Course/Dx - Course Course Of Treatment: This patient is a 73 year old M presenting to [facility] accompanied by a woman and young boy with a chief complaint of bilateral calf pain, worse in the left, since three days ago. The patient rates the pain 6/10 in severity. Symptoms alleviated by movement. Patient reports LE edema, insomnia , and ecchymosis and erythema of the left calf. Patient denies fever, chills, N/ V, CP, or SOB. CXR reveals, per radiologist, 1. FINDINGS MOST CONSISTENT WITH CHRONIC INTERSTITIAL LUNG DISEASE, UNCHANGED. 2. CHRONIC DORSAL VERTEBRAL BODY COMPRESSION FRACTURES UNCHANGED. 3. POSTSURGICAL CHANGES. Melly Doppler Study reveals, per radiologist, FINDINGS MOST CONSISTENT WITH BILATERAL CHRONIC DEEP VENOUS THROMBOSIS WITHIN. THE FEMORAL AND POPLITEAL VEINS. ED physician has reviewed this radiology report. Bloodwork/UA obtained. In the ED course the patient was given Morphine, Apixaban, Vancomycin, IV fluids, and Ondansetron. We discussed patient care with Dr. Heard, hospitalist, and they recommended discharge in addition to anti-coagulation treatment and a trial of PO antibiotics. Patient will be discharged with prescription for Apixaban and Sulfamethox and follow up from Dr. Valdes. - Diagnoses Provider Diagnoses: DVT (deep venous thrombosis), Cellulitis - Physician Notifications Discussed Care Of Patient With: Justus Heard Time Discussed With Above Provider: 11:47 Instructed by Provider To: Other - send home Discharge - Sign-Out/Discharge Documenting (check all that apply): Patient Departure - discharge Patient Received Moderate/Deep Sedation with Procedure: No - Discharge Plan Condition: Stable Disposition: HOME Prescriptions: Apixaban [Eliquis] 10 mg PO BID 7 Days #14 tab.ds.pk Sulfamethox/Trimethoprim DS* [Bactrim DS 800/160 TAB*] 1 tab PO BID 20 Days #10 tab Patient Education Materials: Cellulitis (ED), Deep Vein Thrombosis (ED) Referrals: Riana Valdes MD [Primary Care Provider] - 3 Days Additional Instructions: Follow up with your Dr. Valdes in 1-3 days. RETURN TO THE EMERGENCY DEPARTMENT FOR CHANGING OR WORSENING SYMPTOMS. - Billing Disposition and Condition Condition: STABLE Disposition: Home - Attestation Statements Document Initiated by Gilles: Yes Documenting Scribe: Fabien Lopez Provider For Whom Gilles is Documenting (Include Credential): Ceci Vázquez MD Scribe Attestation: Fabien Weldon scribed for Ceci Vázquez MD on 07/16/18 at 1519. Scribe Documentation Reviewed: Yes Provider Attestation: The documentation as recorded by the Fabien montiel accurately reflects the service I personally performed and the decisions made by , Ceci Vázquez MD Status of Scribe Document: Viewed
[2018-07-16] MEDS ORDERED: NS 0.9% 1000 ML** 1,000 ML IV ONE (09:29)
[2018-07-16] MEDS ORDERED: Morphine 4 MG/ML VIAL (1 ml) 4 MG/ML VIAL IV ONE (09:30)
[2018-07-16] MEDS ORDERED: Ondansetron INJ* 2 MG/ML VIAL IV ONE (09:30)
[2018-07-16] MEDS ORDERED: Vancomycin(*) 1,000 MG in NS 0.9% 250 ML* 250 ML IVPB ONE (10:01)
[2018-07-16 11:15] LABS: ABS Basophils 0.1 10^3/ul (0-0.2); ABS Eosinophils 1.2 10^3/ul (0-0.6); ABS Lymphocytes 0.4 10^3/ul (1.0-4.8); ABS Monocytes 0.8 10^3/ul (0-0.8); ABS Nucleated RBC 0 10^3/ul; Eosinophil % 19.1 %; Hematocrit 40 % (36-46); Hemoglobin 13.1 g/dL (14.0-18.0); Lymphocyte % 6.7 %; Mean Corpuscular HGB Conc 33 g/dL (31-36); Mean Corpuscular Hemoglobin 30 pg (27-31); Mean Corpuscular Volume 91 fL (80-94); Mean Platelet Volume 7.5 fL (7.4-10.4); Nucleated Red Blood Cells % 0; Platelet Count 176 10^3/uL (150-450); Red Blood Count 4.34 10^6 /uL (4.18-5.48); Red Cell Distribution Width 14 % (10.5-15); White Blood Count 6.5 10^3/uL (3.5-10.8)
[2018-07-16 11:23] LABS: Activated Partial Thrombo Time 29.8 seconds (26.0-36.3); INR 0.99 (0.77-1.02)
[2018-07-16 11:33] LABS: Albumin 3.9 g/dL (3.2-5.2); Albumin/Globulin Ratio 1.6 (1-3); BUN/Creatinine Ratio 20.9 (8-20); C Reactive Protein 2.9 mg/L (<8.01); Calcium 8.8 mg/dL (8.6-10.3); EGFR African American 105.2 (>60); EGFR Non-African American 86.9 (>60); Globulin 2.5 g/dL (2-4); Potassium 4.6 mmol/L (3.5-5.0); Total Bilirubin 0.7 mg/dL (0.2-1.0); Total Protein 6.4 g/dL (6.4-8.9); Troponin I 0.02 ng/mL (<0.04)
[2018-07-16] MEDS ORDERED: Apixaban* 5 MG TAB PO ONE (11:47)
[2018-07-16 12:43] VITALS: BP 136/91
== END 2018-07-16 12:42 | disposition home or self-care (01) ==
LOC: ED 08:44
DX: I82.513 Chronic embolism and thrombosis of femoral vein, bilateral (principal); I82.533 Chronic embolism and thrombosis of popliteal vein, bilateral; L03.116 Cellulitis of left lower limb; E11.9 Type 2 diabetes mellitus without complications; I73.9 Peripheral vascular disease, unspecified; J44.9 Chronic obstructive pulmonary disease, unspecified; Z86.718 Personal history of other venous thrombosis and embolism; Z88.0 Allergy status to penicillin; Z79.51 Long term (current) use of inhaled steroids; Z95.2 Presence of prosthetic heart valve; Z87.891 Personal history of nicotine dependence
CPT/HCPCS: 36415; 71046; 80053; 83605; 83880; 84484; 85025; 85610; 85730; 86140; 87040; 93970; 96361; 96365; 96366; 96375; 99284; J2270; J2405; J3370

== ENCOUNTER 2018-09-30 10:31 | Emergency (ER) | payer MEDICARE ==
--- OUTSIDE RECORDS SUMMARY | 2018-09-30 10:37 | XMS REPORT | Continuity of Care Document ---
:1945 External Reference #:[id number] Author Name Johnathon Montalvo D.P.M. Address [address] [place] [address] Care Team Providers Name Role Phone Riana Goldberg M.D. Care Team Information American History Teacher Unavailable Riana Goldberg M.D. Primary Care Physician Unavailable Payers Date Identification Numbers Payment Provider Subscriber Policy Number: [id number] Medicare [place] Marcelino Ho August PayID: [id number] [address] [place] [address] Expires: 2016 Policy Number: [id number] [place] Taisha August PayID: [id number] [address] [address] Policy Number: [id number] Medicare Dme Marcelino Ho August PayID: [id number] [address] [place] [address] Expires: 2011 Policy Number: [id number] [place] Marcelino Ho August PayID: [id number] [address] [address] Effective: 2012 Policy Number: [id number] [place] Taisha August Expires: 2012 PayID: [id number] [address] [address] Effective: 2012 Policy Number: [id number] [place] Taisha August Expires: 2013 PayID: [id number] [address] [place] [address] Policy Number: [id number] [facility] Health Care Options Marcelino Ho August Group Number: [id number] [id number] PayID: [id number] [place] [address] Problems Active Problems Provider Date Onychomycosis Johnathon Montalvo D.P.M. Onset: 06/23/2011 Pain in limb Johnathon Montalvo D.P.M. Onset: 06/23/2011 Verruca vulgaris Johnathon Montalvo D.P.M. Onset: 06/23/2011 Benign neoplasm of skin of lower limb Johnathon Montalvo D.P.M. Onset: 2011 Acquired hallux rigidus Johnathon Montalvo D.P.M. Onset: 06/23/2011 Bunion Johnathon Montalvo D.P.M. Onset: 06/23/2011 Verruca vulgaris Johnathon Montalvo D.P.M. Onset: 09/02/2011 Plantar fascial fibromatosis Johnathon Montalvo D.P.M. Onset: 09/02/2011 Tinea pedis Johnathon Montalvo D.P.M. Onset: 11/21/2013 Verruca plantaris Johnathon Montalvo D.P.M. Onset: 12/11/2014 Hammer toe Johnathon Montalvo D.P.M. Onset: 11/12/2015 Localized, primary osteoarthritis of the Johnathon Montalvo D.P.M. Onset: 01/2016 ankle and/or foot Enthesopathy of ankle AND/OR tarsus Johnathon Montalvo D.P.M. Onset: 2015 Corns and callus Johnathon Montalvo D.P.M. Onset: 08/25/2016 Peripheral vascular disorder due to Johnathon Montalvo D.P.M. Onset: 2016 diabetes mellitus Tailor's bunion Johnathon Montalvo D.P.M. Onset: 08/25/2016 Has influenza vaccination at home Onset: 01/02/2017 Needs influenza immunization Onset: 01/05/2018 Has influenza vaccination at home Onset: Note: season Family History Date Family Member(s) Observation Comments Father Heart Disease Father Cancer Social History Type Date Description Comments Sex Unknown ETOH Use Denies alcohol use Tobacco Use Start: Unknown End: Unknown Patient is a former smoker Allergies, Adverse Reactions, Alerts Active Allergies Reaction Severity Comments Date Penicillin 06/23/2011 Betamethasone Dipropionate 02/09/2017 Flucinonide 02/09/2017 Cephalexin 02/09/2017 Cetirizine Hydrochloride 02/09/2017 Medications Active Medications SIG Qnty Indications Ordering Provider Date HM Cetirizine HCL Unknown 10mg Tablets Mycophenolate Mofetil Take 3 Tablets By Unknown 500mg Mouth Twice Daily Tablets Augmented Betamethasone Apply To Affected Unknown Dipropionate Area(S) Two Times 0.05% Gel Daily Potassium Chloride ER Unknown 10Meq Tablets ER Metformin HCL Unknown 500mg Tablets Symbicort Unknown 160-4.5mcg/Act Aerosol Fluocinonide Unknown 0.05% Solution Myrbetriq Unknown 25mg Tablets ER 24HR Anoro Ellipta Unknown 62.5-25mcg/Inh Aerosol Nasal Ookala Unknown 0.05% Solution Metformin HCL Unknown 500mg Tablets Furosemide Unknown 20mg Tablets Tamsulosin HCL Unknown 0.4mg Capsules Multivitamin Men Unknown Tablets Vitamin C Unknown 1000mg Tablets Vitamin B Complex Unknown Tablets Vitamin D3 Unknown 2000Unit Capsules Stool Softener Unknown 100mg Capsules Aspirin Unknown 81mg Tablets Rosuvastatin Calcium Unknown 40mg Tablets History Medications Doxycycline Hyclate one tab every 20tabs M25.774 Johnathon Hernández 03/24/2016 - 100mg 12 h prior to 08/25/2016 Tablets meal D.P.M. Ciclopirox Olamine apply to feet 90gm 110.4 Johnathon Hernández 11/21/2013 - 0.77% Cream every day for 2 05/28/2015 months . D.P.M. Doxepin HCL Unknown - 10mg Capsules 08/25/2016 Tacrolimus Unknown - 0.1% Ointment 08/25/2016 Tacrolimus Unknown - 0.1% Ointment 02/04/2016 Saline Nasal Ookala Unknown - 0.65% 08/25/2016 Solution Florajen3 Unknown - Capsules 08/25/2016 Loratadine Unknown - 10mg Tablets 11/17/2016 Trospium Chloride ER Unknown - 60mg Caps 08/25/2016 ER 24HR Montelukast Sodium Unknown - 10mg Tablets 08/25/2016 Potassium Unknown - 75mg Tablets 09/11/2018 Crestor Unknown - 40mg Tablets 09/29/2015 Doxycycline Hyclate Unknown - 100mg 05/28/2015 Capsules Viagra Unknown - 100mg Tablets 05/28/2015 Clindamycin HCL Unknown - 300mg Capsules 05/28/2015 Hydrocortisone Valerate Unknown - 0.2% 05/28/2015 Cream Fluzone High-Dose Unknown - 0.5ml Jess 05/28/2015 Fluocinonide Unknown - 0.05% Solution 02/09/2017 Triamcinolone Acetonide Unknown - 0.1% 08/25/2016 Cream Mupirocin Calcium Unknown - 2% Cream 08/25/2016 Santyl Unknown - 250Unit/GM Ointment 08/25/2016 Betamethasone Unknown - Dipropionate 02/09/2017 0.05% Cream Betamethasone Unknown - Dipropionate 10/19/2017 0.05% Cream Fluocinonide apply two times Unknown - 0.05% Cream a day sparingly 10/19/2017 to affected area(s) for 2-3 weeks Otezla Unknown - 30mg Tablets 07/27/2017 Cetirizine HCL Unknown - 10mg Chewtabs 10/19/2017 Methylprednisolone Unknown - 4mg Tablets 10/19/2017 Betamethasone apply to Unknown - Dipropionate affected area 03/23/2018 0.05% Lotion twice a day Methylprednisolone Unknown - 4mg Tablets 03/23/2018 Cetirizine HCL Unknown - 10mg Tablets 03/23/2018 Cyproheptadine HCL Unknown - 4mg Tablets 03/23/2018 Rosuvastatin Calcium Unknown - 40mg 09/11/2018 Tablets Mycophenolate Mofetil Unknown - 500mg 09/11/2018 Tablets Hydrochlorothiazide Unknown - 07/26/2012 Vit C Unknown - 05/28/2015 Multi Vitamin Mens Unknown - 05/28/2015 Aspir-81 Unknown - 05/28/2015 Vitamin B 6 Unknown - 05/28/2015 Potassium Alginate Unknown - 05/13/2014 Magnesium Aspartate Unknown - 05/13/2014 Saw [place] Unknown - 11/13/2012 Vitamin D-1000 Maximum Unknown - Strength 07/02/2013 Florajen Acidophilus Unknown - 05/28/2015 Crestor Unknown - 20mg 05/28/2015 Co Q-10 Maximum Strength Unknown - 07/02/2013 Furosemide Unknown - 05/13/2014 Potassium Chloride ER Unknown - 05/28/2015 Metformin HCL Unknown - 05/13/2014 Vitamin D-3 Unknown - 05/13/2014 Triamcinolone Acetonide Unknown - 05/13/2014 Fluocinonide Unknown - 05/13/2014 Furosemide Unknown - 20mg Tablets 05/28/2015 Metformin HCL twice a day Unknown - 500mg Tablets 05/28/2015 Triamcinolone Acetonide Unknown - Micronized 04/14/2015 Powder Fluocinonide apply two times Unknown - 0.05% Cream a day sparingly 04/14/2015 to affected area(s) for 2-3 weeks Vitamin D3 Unknown - 5000mg 05/28/2015 Tacrolimus Unknown - 0.1% Ointment 05/28/2015 Triamcinolone Acetonide Unknown - 0.1% 05/28/2015 Cream Levofloxacin Unknown - 500mg Tablets 05/28/2015 Trospium Chloride ER Unknown - 60mg Caps 05/28/2015 ER 24HR Tamsulosin HCL Unknown - 0.4mg Capsules 05/28/2015 Potassium Chloride ER Unknown - 10Meq 05/28/2015 Tablets ER Montelukast Sodium Unknown - 10mg Tablets 05/28/2015 Fluocinonide Unknown - 0.05% Solution 05/28/2015 Clobetasol Propionate Unknown - 0.05% 05/28/2015 Solution Vital Signs Date Vital Result Comment 08/24/2018 8:04am Height 66 inches 5'6" 03/23/2018 8:37am Height 66 inches 5'6" Weight 240.00 lb Heart Rate 88 /min BMI (Body Mass Index) 38.7 kg/m2 O2 % BldC Oximetry 97 % Pain Level 0 01/05/2018 8:21am BP Systolic 138 mmHg BP Diastolic 74 mmHg Heart Rate 67 /min 10/19/2017 8:13am Heart Rate 69 /min O2 % BldC Oximetry 97 % 07/27/2017 8:08am BP Systolic 120 mmHg BP Diastolic 78 mmHg Heart Rate 67 /min O2 % BldC Oximetry 92 % 05/18/2017 8:18am BP Systolic 118 mmHg BP Diastolic 68 mmHg 05/04/2017 8:04am BP Systolic 110 mmHg BP Diastolic 70 mmHg Heart Rate 66 /min O2 % BldC Oximetry 96 % 02/09/2017 8:15am Height 66.5 inches 5'6.50" BP Systolic 132 mmHg BP Diastolic 88 mmHg Heart Rate 51 /min O2 % BldC Oximetry 94 % 11/17/2016 8:16am Height 66.5 inches 5'6.50" Weight 245.00 lb BP Systolic 130 mmHg BP Diastolic 78 mmHg Heart Rate 52 /min BMI (Body Mass Index) 38.9 kg/m2 O2 % BldC Oximetry 91 % 08/25/2016 8:18am BP Systolic 122 mmHg BP Diastolic 80 mmHg Heart Rate 56 /min O2 % BldC Oximetry 91 % Pain Level 6 04/21/2016 8:30am BP Systolic 132 mmHg BP Diastolic 70 mmHg Heart Rate 74 /min Pain Level 0 03/31/2016 8:28am BP Systolic 134 mmHg BP Diastolic 78 mmHg Heart Rate 58 /min 03/24/2016 8:16am BP Systolic 134 mmHg BP Diastolic 78 mmHg Heart Rate 61 /min Pain Level 3 02/04/2016 8:10am BP Systolic 138 mmHg BP Diastolic 84 mmHg Heart Rate 68 /min O2 % BldC Oximetry 97 % 12/22/2015 8:02am Height 67 inches 5'7" BP Systolic 138 mmHg BP Diastolic 76 mmHg Heart Rate 55 /min 11/12/2015 7:59am Height 67 inches 5'7" BP Systolic 126 mmHg BP Diastolic 82 mmHg Heart Rate 71 /min 09/29/2015 7:55am Height 67 inches 5'7" BP Systolic 124 mmHg BP Diastolic 80 mmHg Heart Rate 64 /min O2 % BldC Oximetry 95 % 08/20/2015 8:04am Height 67 inches 5'7" Weight 240.00 lb BMI (Body Mass Index) 37.6 kg/m2 07/07/2015 8:13am Height 67 inches 5'7" BP Systolic 128 mmHg BP Diastolic 78 mmHg Heart Rate 61 /min 05/28/2015 8:04am Height 67 inches 5'7" BP Systolic 112 mmHg BP Diastolic 64 mmHg Heart Rate 76 /min 04/14/2015 8:27am Height 67 inches 5'7" BP Systolic 144 mmHg BP Diastolic 70 mmHg Heart Rate 75 /min 03/05/2015 8:11am Height 67 inches 5'7" BP Systolic 120 mmHg BP Diastolic 78 mmHg Heart Rate 61 /min 01/20/2015 8:07am Height 67 inches 5'7" BP Systolic 138 mmHg BP Diastolic 82 mmHg Heart Rate 58 /min 12/11/2014 8:02am Height 67 inches 5'7" BP Systolic 120 mmHg BP Diastolic 80 mmHg Heart Rate 57 /min 10/28/2014 8:12am Height 67 inches 5'7" BP Systolic 132 mmHg BP Diastolic 78 mmHg Heart Rate 65 /min 09/16/2014 8:04am Height 67 inches 5'7" BP Systolic 134 mmHg BP Diastolic 78 mmHg Heart Rate 59 /min 08/05/2014 8:05am Height 67 inches 5'7" BP Systolic 122 mmHg BP Diastolic 78 mmHg Heart Rate 63 /min 2014 8:15am Height 67 inches 5'7" BP Systolic 132 mmHg BP Diastolic 78 mmHg Heart Rate 63 /min 05/13/2014 8:27am Height 67 inches 5'7" BP Systolic 148 mmHg BP Diastolic 82 mmHg Heart Rate 65 /min O2 % BldC Oximetry 95 % 04/01/2014 8:08am Height 67 inches 5'7" BP Systolic 132 mmHg BP Diastolic 74 mmHg Heart Rate 80 /min Respiratory Rate 12 /min 02/18/2014 8:01am Height 67 inches 5'7" BP Systolic 134 mmHg BP Diastolic 78 mmHg Heart Rate 88 /min Respiratory Rate 12 /min 01/07/2014 7:59am Height 67 inches 5'7" BP Systolic 140 mmHg BP Diastolic 78 mmHg Heart Rate 68 /min 11/21/2013 8:00am Height 67 inches 5'7" Weight 250.00 lb BP Systolic 126 mmHg BP Diastolic 64 mmHg Heart Rate 59 /min BMI (Body Mass Index) 39.2 kg/m2 09/12/2013 7:58am Height 67 inches 5'7" Weight 250.00 lb BP Systolic 124 mmHg BP Diastolic 82 mmHg Heart Rate 60 /min BMI (Body Mass Index) 39.2 kg/m2 07/02/2013 8:04am Height 67 inches 5'7" Weight 250.00 lb BP Systolic 130 mmHg BP Diastolic 72 mmHg Heart Rate 92 /min Respiratory Rate 14 /min BMI (Body Mass Index) 39.2 kg/m2 O2 % BldC Oximetry 98 % 04/05/2013 8:45am Height 67 inches 5'7" Weight 250.00 lb BP Systolic 150 mmHg BP Diastolic 78 mmHg BMI (Body Mass Index) 39.2 kg/m2 01/24/2013 8:39am Height 67 inches 5'7" BP Systolic 124 mmHg BP Diastolic 80 mmHg 11/13/2012 4:36pm Height 67 inches 5'7" BP Systolic 110 mmHg BP Diastolic 60 mmHg 10/04/2012 7:51am Height 67 inches 5'7" Weight 250.00 lb BP Systolic 128 mmHg BP Diastolic 70 mmHg BMI (Body Mass Index) 39.2 kg/m2 09/04/2012 7:53am Height 67 inches 5'7" Weight 250.00 lb BP Systolic 120 mmHg BP Diastolic 72 mmHg BMI (Body Mass Index) 39.2 kg/m2 07/26/2012 7:56am Height 67 inches 5'7" Weight 250.00 lb BP Systolic 124 mmHg BP Diastolic 82 mmHg BMI (Body Mass Index) 39.2 kg/m2 06/19/2012 8:18am Height 67 inches 5'7" Weight 250.00 lb BP Systolic 110 mmHg BP Diastolic 66 mmHg Heart Rate 80 /min Respiratory Rate 20 /min BMI (Body Mass Index) 39.2 kg/m2 05/15/2012 8:00am Height 67 inches 5'7" BP Systolic 110 mmHg BP Diastolic 64 mmHg 04/06/2012 8:00am Height 67 inches 5'7" BP Systolic 120 mmHg BP Diastolic 70 mmHg 02/28/2012 8:11am Height 67 inches 5'7" 01/27/2012 8:02am Height 67 inches 5'7" 12/16/2011 7:59am Height 67 inches 5'7" 11/03/2011 7:46am Height 67 inches 5'7" 09/30/2011 8:06am Height 67 inches 5'7" 06/23/2011 7:54am Height 67 inches 5'7" Weight 250.00 lb BMI (Body Mass Index) 39.2 kg/m2 Results Test Date Facility Test Result H/L Range Note Laboratory test 03/23/2018 [facility] Hemoglobin A1c 6.6, finding 03/01/18 Laboratory test 01/05/2018 [facility] Hemoglobin A1c 6.3, 09/30/17 finding Laboratory test 02/09/2017 [facility] Hemoglobin A1c 6.2, 12/24/16 finding Laboratory test 11/17/2016 [facility] Hemoglobin A1c 08/16/16, 6.0 , finding Procedures Date Code Description Status 08/24/2018 72060 Destruction Of Flat Warts Or Molluscum Contagiosum, Milia Completed To 14 08/24/2018 84734 Debridement Nails Any Method 6 Or More Completed 06/08/2018 55446 Debridement Nails Any Method 6 Or More Completed 06/08/2018 80621 Pare Hyperkeratotic Lesion, > 4 Completed 03/23/2018 11569 Debridement Nails Any Method 6 Or More Completed 03/23/2018 55420 Pare Hyperkeratotic Lesion, > 4 Completed 01/05/2018 66766 Debridement Nails Any Method 6 Or More Completed 01/05/2018 01990 Pare Hyperkeratotic Lesion, > 4 Completed 10/19/2017 87218 Debridement Nails Any Method 6 Or More Completed 10/19/2017 00953 Pare Hyperkeratotic Lesion, > 4 Completed 07/27/2017 19857 Debridement Nails Any Method 6 Or More Completed 07/27/2017 33957 Pare Hyperkeratotic Lesion, 2-4 Completed 05/04/2017 97934 Pare Hyperkeratotic Lesion, > 4 Completed 05/04/2017 97042 Debridement Nails Any Method 6 Or More Completed 05/04/2017 12759 Destruction Of Flat Warts Or Molluscum Contagiosum, Milia Completed To 14 02/09/2017 98396 Debridement Nails Any Method 6 Or More Completed 02/09/2017 70974 Pare Hyperkeratotic Lesion, > 4 Completed 11/17/2016 75110 Debridement Nails Any Method 6 Or More Completed 11/17/2016 90082 Pare Hyperkeratotic Lesion, > 4 Completed 08/25/2016 30350 Debridement Nails Any Method 6 Or More Completed 08/25/2016 24096 Pare Hyperkeratotic Lesion, 2-4 Completed 04/21/2016 84273 X-Ray Foot Complete Completed 03/24/2016 36226 X-Ray Foot Complete Completed 03/19/2016 81513 Hallux Valgus Correction W/Metatarsal Ostetomy Completed (Matias Umaña) 03/19/2016 28665 Correction Hammertoe Completed 03/19/2016 83765 Hemiphalangectomy Or IP JT Excision Toe Completed 02/04/2016 22553 Destruction Of Flat Warts Or Molluscum Contagiosum, Milia Completed To 14 12/22/2015 33452 X-Ray Foot Complete Completed 12/22/2015 92934 Destruction Of Flat Warts Or Molluscum Contagiosum, Milia Completed To 14 12/22/2015 14481 Debridement Nails Any Method 6 Or More Completed 11/12/2015 19611 Destruction Of Flat Warts Or Molluscum Contagiosum, Milia Completed To 14 09/29/2015 22311 Destruction Of Flat Warts Or Molluscum Contagiosum, Milia Completed To 14 09/29/2015 83198 Debridement Nails Any Method 6 Or More Completed 08/20/2015 03135 Destruction Of Flat Warts Or Molluscum Contagiosum, Milia Completed To 14 07/07/2015 27447 Destruction Of Flat Warts Or Molluscum Contagiosum, Milia Completed To 14 07/07/2015 80699 Debridement Nails Any Method 6 Or More Completed 05/28/2015 73749 Destruction Of Flat Warts Or Molluscum Contagiosum, [facility] Completed To 14 04/14/2015 71460 Destruction Of Flat Warts Or Molluscum Contagiosum, Milia Completed To 14 04/14/2015 55380 Debridement Nails Any Method 6 Or More Completed 03/05/2015 74777 Destruction Of Flat Warts Or Molluscum Contagiosum, Milia Completed To 14 01/20/2015 61815 Destruction Of Flat Warts Or Molluscum Contagiosum, Milia Completed To 14 01/20/2015 91153 Debridement Nails Any Method 6 Or More Completed 12/11/2014 87270 Destruction Of Flat Warts Or Molluscum Contagiosum, [facility] Completed To 14 10/28/2014 79325 Destruction Of Flat Warts Or Molluscum Contagiosum, [facility] Completed To 14 10/28/2014 13180 Debridement Nails Any Method 6 Or More Completed 09/16/2014 92784 Destruction Of Flat Warts Or Molluscum Contagiosum, Milia Completed To 14 08/05/2014 42366 Destruction Of Flat Warts Or Molluscum Contagiosum, [facility] Completed To 14 08/05/2014 52914 Debridement Nails Any Method 6 Or More Completed 2014 66449 Destruction Of Flat Warts Or Molluscum Contagiosum, Milia Completed To 14 05/13/2014 97482 Destruction Of Flat Warts Or Molluscum Contagiosum, Milia Completed To 14 05/13/2014 61851 Debridement Nails Any Method 6 Or More Completed 04/01/2014 14855 Destruction Of Flat Warts Or Molluscum Contagiosum, Milia Completed To 14 02/18/2014 08311 Debridement Nails Any Method 6 Or More Completed 02/18/2014 66226 Destruction Of Flat Warts Or Molluscum Contagiosum, [facility] Completed To 14 01/07/2014 11608 Destruction Of Flat Warts Or Molluscum Contagiosum, Milia Completed To 14 11/21/2013 64573 Destruction Of Flat Warts Or Molluscum Contagiosum, Milia Completed To 14 11/21/2013 14044 Debridement Nails Any Method 6 Or More Completed 09/12/2013 83731 Destruction Of Flat Warts Or Molluscum Contagiosum, Milia Completed To 14 09/12/2013 26433 Debridement Nails Any Method 6 Or More Completed 07/02/2013 97079 Destruction Of Flat Warts Or Molluscum Contagiosum, Milia Completed To 14 07/02/2013 10314 Debridement Nails Any Method 6 Or More Completed 04/05/2013 92942 Destruction Of Flat Warts Or Molluscum Contagiosum, Milia Completed To 14 04/05/2013 12162 Debridement Nails Any Method 6 Or More Completed 01/24/2013 90083 Destruction Of Flat Warts Or Molluscum Contagiosum, Milia Completed To 14 01/24/2013 69436 Debridement Nails Any Method 6 Or More Completed 11/13/2012 00010 Destruction Of Flat Warts Or Molluscum Contagiosum, [facility] Completed To 14 10/04/2012 76696 Debridement Nails Any Method 6 Or More Completed 10/04/2012 72408 Destruction Of Flat Warts Or Molluscum Contagiosum, [facility] Completed To 14 09/04/2012 49862 Destruction Of Flat Warts Or Molluscum Contagiosum, [facility] Completed To 14 07/26/2012 28577 Destruction Of Flat Warts Or Molluscum Contagiosum, Milia Completed To 14 07/26/2012 73825 Debridement Nails Any Method 6 Or More Completed 06/19/2012 74562 Destruction Of Flat Warts Or Molluscum Contagiosum, Milia Completed To 14 05/15/2012 17320 Destruction Of Flat Warts Or Molluscum Contagiosum, Milia Completed To 14 05/15/2012 27316 Debridement Nails Any Method 6 Or More Completed 05/15/2012 80702 Debridement Nails Any Method 1-5 Completed 04/06/2012 18670 Destruction Of Flat Warts Or Molluscum Contagiosum, Milia Completed To 14 02/28/2012 65515 Destruction Of Flat Warts Or Molluscum Contagiosum, [facility] Completed To 14 02/28/2012 59501 Debridement Nails Any Method 6 Or More Completed 01/27/2012 81274 Destruction Of Flat Warts Or Molluscum Contagiosum, Milia Completed To 14 12/16/2011 04918 Destruction Of Flat Warts Or Molluscum Contagiosum, Milia Completed To 14 11/03/2011 16155 Destruction Of Flat Warts Or Molluscum Contagiosum, Milia Completed To 14 11/03/2011 48320 Debridement Nails Any Method 6 Or More Completed 09/30/2011 97697 Destruction Of Flat Warts Or Molluscum Contagiosum, [facility] Completed To 14 09/02/2011 22273 Destruction Of Flat Warts Or Molluscum Contagiosum, [facility] Completed To 14 07/22/2011 81745 Destruction Of Flat Warts Or Molluscum Contagiosum, [facility] Completed To 14 07/22/2011 27615 Debridement Nails Any Method 6 Or More Completed 06/23/2011 63375 Destruction Of Flat Warts Or Molluscum Contagiosum, Milia Completed To 14 05/19/2011 64995 Destruction Of Flat Warts Or Molluscum Contagiosum, [facility] Completed To 14 05/19/2011 39360 Debridement Nails Any Method 6 Or More Completed 04/22/2011 02761 Destruction Of Flat Warts Or Molluscum Contagiosum, [facility] Completed To 14 03/24/2011 08985 Destruction Of Flat Warts Or Molluscum Contagiosum, [facility] Completed To 14 02/24/2011 49894 Destruction Of Flat Warts Or Molluscum Contagiosum, [facility] Completed To 14 01/27/2011 36872 Destruction Of Flat Warts Or Molluscum Contagiosum, [facility] Completed To 14 01/07/2011 76241 Biopsy Skin Lesion Single Completed 12/21/2010 28210 Chemical Cautery Granulation Tissue Completed 12/21/2010 03848 Destruction Of Flat Warts Or Molluscum Contagiosum, [facility] Completed To 14 11/19/2010 78920 Destruction Of Flat Warts Or Molluscum Contagiosum, [facility] Completed To 14 10/22/2010 21715 Destruction Of Flat Warts Or Molluscum Contagiosum, [facility] Completed To 14 09/24/2010 91606 Destruction Of Flat Warts Or Molluscum Contagiosum, [facility] Completed To 14 08/27/2010 27283 Destruction Of Flat Warts Or Molluscum Contagiosum, [facility] Completed To 14 07/30/2010 48779 Destruction Of Flat Warts Or Molluscum Contagiosum, [facility] Completed To 14 07/02/2010 24897 Destruction Of Flat Warts Or Molluscum Contagiosum, [facility] Completed To 14 05/13/2010 36273 X-Ray Foot Complete Completed 05/13/2010 58203 Destruction Of Flat Warts Or Molluscum Contagiosum, Milia Completed To 14 05/13/2010 36126 Debridement Nails Any Method 6 Or More Completed Encounters Type Date Location Provider Dx Diagnosis Office Visit 05/18/2017 [facility] Johnathon Hernández D23.72 Oth benign 8:00a Fuentes Montalvo.P.M. 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 foot M25.774 Osteophyte, right foot M20.41 Other hammer toe(s) (acquired), right foot B07.0 Plantar wart M79.671 Pain in right foot M79.672 Pain in left foot Office Visit 12/22/2015 7:45a Ai Hernández M20.11 Hallux valgus Office [facility], (acquired), right D.P.M. foot M20.41 Other hammer toe(s) (acquired), right foot B07.0 Plantar wart B35.1 Tinea unguium M79.671 Pain in right foot M79.675 Pain in left toe(s) Office Visit 11/21/2013 7:45a [facility] Johnathon Hernández 078.19 Viral Warts Selvin, D.P.M. 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 078.19 Viral Warts Spec Other 216.7 Benign Neoplasm Skin Lower Limb Incl Hip 729.5 Pain In Limb Office Visit 12/16/2011 7:45a [facility] Johnathon Hernández 216.7 Benign Neoplasm Selvin, D.P.M. Skin Lower Limb Incl Hip 729.5 Pain In Limb 078.19 Viral Warts Spec Other 728.71 Fibromatosis Plantar Fascia Office Visit 09/30/2011 7:45a [facility] Johnathon Hernández 216.7 Benign Neoplasm Selvin, D.P.M. Skin Lower Limb Incl Hip 078.19 Viral Warts Spec Other 729.5 Pain In Limb 728.71 Fibromatosis Plantar Fascia Office Visit 09/02/2011 7:45a [facility] Johnathon Hernández 216.7 Benign Neoplasm Celina MontalvoP.M. Skin Lower Limb Incl Hip 078.19 Viral Warts Spec Other 729.5 Pain In Limb 728.71 Fibromatosis Plantar Fascia Office Visit 02/24/2011 7:45a [facility] Johnathon Hernández 078.10 Viral Warts Celina MontalvoP.M. Unspec 216.7 Benign Neoplasm Skin Lower Limb Incl Hip 729.5 Pain In Limb Office Visit 01/07/2011 7:45a [facility] Johnathon Hernández 216.7 Benign Neoplasm Celina MontalvoP.M. Skin Lower Limb Incl Hip 729.5 Pain In Limb 686.1 Pyogenic Granuloma Office Visit 05/27/2010 8:00a [place] Johnathon Hernández 216.7 Benign Neoplasm Celina MontalvoP.M. Skin Lower Limb Incl Hip 917.2 Injury Superficial Blister Foot & Toes W/O Infection 729.5 Pain In Limb Office Visit 05/13/2010 8:45a [facility] Johnathon Hernández 735.2 Hallux Rigidus Celina MontalvoP.MLindsay 216.7 Benign Neoplasm Skin Lower Limb Incl Hip 727.1 Bunion 110.1 Dermatophytosis Nail 729.5 Pain In Limb Plan of Treatment 09/11/2018 - Celina ScottP.[id number] Other benign neoplasm of skin of left lower limb, includingComments:Debrided lesion . Follow up to acid treatment. good results noted. Lesion is resolved after debridement . Patient will apply moisturizing lotion or urea cream daily as needed.sub 1st MPJ leftE11.59 Type 2 diabetes mellitus with other circulatory complicationComments: Continue to Follow with his Vascular doctor in [place] advised no barefoot , advised use kamea daily advised no barefoot , checked shoes today , they are appropriate. wears compression stockings daily татьяна.Follow up:10 weeks. for diabetic foot [id number] Pain in left footComments:Continue to wear orthotics daily . Advised no barefoot. no barefoot debrided wart as needed for pain relief no barefoot debrided nails /callus as needed for pain relief
[2018-09-30 10:41] VITALS: BP 118/70
--- NOTE | 2018-09-30 10:56 | UC ---
Dizzy HPI HPI Summary: This patient is a 73-year-old male who presents to the urgent care with a chief complaint of dizziness. He reports that he is feeling like he is going to pass out. He denies any spinning of the room. He reports that the symptoms started this morning and not improving. He denies any chest pain, shortness of breath or palpitations. She has no other complaints. - History Of Current Complaint Chief Complaint: UCDizziness Stated Complaint: LIGHT HEADED/ COUGH Time Seen by Provider: 09/30/18 10:35 Hx Obtained From: Patient Onset/Duration: Sudden Onset Timing: Intermittent Episode Lasting Severity Initially: Mild Severity Currently: Moderate Pain Intensity: 0 - Allergies/Home Medications Allergies/Adverse Reactions: Allergies Allergy/AdvReac Type Severity Reaction Status Date / Time Penicillins Allergy Rash Verified 09/30/18 10:42 PMH/Surg Hx/FS Hx/Imm Hx Endocrine History: Diabetes Cardiovascular History: Deep Vein Thrombosis - Surgical History Surgical History: Yes Surgery Procedure, Year, and Place: OPEN HEART, aortic valve replacement, bilateral knee replacements - Family History Known Family History: Positive: Hypertension, Diabetes - Social History Alcohol Use: None Substance Use Type: None Smoking Status (MU): Former Smoker Type: Cigarettes Amount Used/How Often: QUIT IN 1991 Review of Systems All Other Systems Reviewed And Are Negative: Yes Constitutional: Positive: Negative Skin: Positive: Negative Eyes: Positive: Negative ENT: Positive: Negative Respiratory: Positive: Negative Cardiovascular: Positive: Negative Gastrointestinal: Positive: Negative Genitourinary: Positive: Negative Motor: Positive: Negative Neurovascular: Positive: Other - dizziness Neurological: Positive: Negative Psychological: Positive: Negative Is Patient Immunocompromised?: Yes Physical Exam - Summary Physical Exam Summary: VITAL SIGNS: Reviewed. GENERAL: Patient is a well developed and nourished male who is lying comfortable in the stretcher. Patient is not in any acute respiratory distress. HEAD AND FACE: No signs of trauma. No ecchymosis, hematomas or skull depressions. No sinus tenderness. EYES: PERRLA, EOMI x 2, No injected conjunctiva, no nystagmus. EARS: Hearing grossly intact. Ear canals and tympanic membranes are within normal limits. MOUTH: Oropharynx within normal limits. NECK: Supple, trachea is midline, no adenopathy, no JVD, no carotid bruit, no c- spine tenderness, neck with full ROM. CHEST: Symmetric, no tenderness at palpation LUNGS: Clear to auscultation bilaterally. No wheezing or crackles. CVS: Regular rate and rhythm, S1 and S2 present, no murmurs or gallops appreciated. ABDOMEN: Soft, non-tender. No signs of distention. No rebound no guarding, and no masses palpated. Bowel sounds are normal. EXTREMITIES: FROM in all major joints, no edema, no cyanosis or clubbing. NEURO: Alert and oriented x 3. No acute neurological deficits. Speech is normal and follows commands. SKIN: Dry and warm Triage Information Reviewed: Yes Appearance: Well-Appearing Vital Signs: Initial Vital Signs Temp 100.2 F 09/30/18 10:36 Pulse 91 09/30/18 10:36 Resp 20 09/30/18 10:36 BP 118/70 09/30/18 10:36 Pulse Ox 97 09/30/18 10:36 Vital Signs Reviewed: Yes Dizzy Course/Dx - Course Course Of Treatment: EKG shows that the patient is in atrial flutter at 74 bpm. Patient has no history of atrial flutter or atrial fibrillation. Therefore this point I discussed the findings with the patient and the need to be transferred to the emergency department for further workup and management. The patient agrees to go by ambulance. I discussed the case with Dr. Greenberg the ER attending and he agrees to accept the patient for transfer. Patient is hemodynamically stable. - Differential Dx/Diagnosis Provider Diagnosis: Atrial flutter Discharge - Sign-Out/Discharge Documenting (check all that apply): Patient Departure All imaging exams completed and their final reports reviewed: No Studies - Discharge Plan Condition: Stable Disposition: TRANS HIGHER LVL OF CARE FAC Patient Education Materials: Atrial Flutter (ED) Referrals: Riana Valdes MD [Primary Care Provider] - - Billing Disposition and Condition Condition: STABLE Disposition: Trans Higher Lvl of Care Fac
== END 2018-09-30 11:15 | disposition short-term general hospital (02) ==
LOC: UCEAST 10:31
DX: I48.92 Unspecified atrial flutter (principal); E11.9 Type 2 diabetes mellitus without complications; Z87.891 Personal history of nicotine dependence; Z88.0 Allergy status to penicillin; Z86.718 Personal history of other venous thrombosis and embolism; Z95.2 Presence of prosthetic heart valve
CPT/HCPCS: 96360; 99213; G0463

== ENCOUNTER 2018-09-30 11:35 | Emergency (ER) | payer MEDICARE ==
--- NOTE | 2018-09-30 12:13 | ED ---
HPI Cardiac - HPI Summary HPI Summary: This patient is a 73 year old M brought to ED via EMS with a chief complaint of lightheadedness since 0600 this morning. He reports feeling fine yesterday. When he woke up, patient reports he was able to walk fine. Patient went to urgent care where they noted him to be in atrial flutter and was sent here. Patient takes nebulizer. In the room, patient reports mild lightheadedness. The patient rates the pain 0/10 in severity. Symptoms aggravated by nothing. Symptoms alleviated by nothing. Patient reports cough. Patient denies CP, palpitations. PMHx of COPD, PNA. No PMHx of CVA, ear infections, or throat infections. - History of Current Complaint Chief Complaint: EDDysrhythmPalp Stated Complaint: CARDIAC PROBLEMS PER EMS Time Seen by Provider: 09/30/18 11:52 Hx Obtained From: Patient Onset/Duration: Started Hours Ago - 0600 this morning, Still Present Timing: Constant Initial Severity: Mild Current Severity: Mild Pain Intensity: 0 Pain Scale Used: 0-10 Numeric Aggravating Factor(s): Nothing Alleviating Factor(s): Nothing Associated Signs and Symptoms: Positive: Lightheadedness, Cough. Negative: Chest Pain, Palpitations - Allergy/Home Medications Allergies/Adverse Reactions: Allergies Allergy/AdvReac Type Severity Reaction Status Date / Time Penicillins Allergy Rash Verified 09/30/18 10:42 Home Medications: Home Medications Apixaban [Eliquis] 5 mg PO BID 09/30/18 [History Confirmed 09/30/18] PMH/Surg Hx/FS Hx/Imm Hx Previously Healthy: No Endocrine/Hematology History: Reports: Hx Diabetes Denies: Hx Thyroid Disease Cardiovascular History: Reports: Hx Peripheral Vascular Disease, Other Cardiovascular Problems/Disorders - VALVE REPLACEMENT Denies: Hx Congestive Heart Failure, Hx Hypertension, Hx Pacemaker/ICD Respiratory History: Reports: Hx Chronic Obstructive Pulmonary Disease (COPD) - inhalers, Hx Pneumonia Denies: Hx Asthma Comment Only: Other Respiratory Problems/Disorders - Quit in 1991 GI History: Denies: Hx Ulcer History: Denies: Hx Dialysis, Hx Renal Disease Musculoskeletal History: Reports: Hx Arthritis - bilat knee replacement, Other Musculoskeletal History - carple tunel Sensory History: Reports: Hx Contacts or Glasses, Hx Macular Degeneration, Hx Hearing Problem Denies: Hx Cataracts, Hx Eye Injury, Hx Eye Prosthesis, Hx Glaucoma, Hx Vision Problem, Hx Deafness, Hx Hearing Aid Opthamlomology History: Reports: Hx Contacts or Glasses, Hx Macular Degeneration Denies: Hx Cataracts, Hx Eye Injury, Hx Eye Prosthesis, Hx Glaucoma, Hx Vision Problem Neurological History: Denies: Hx Dementia, Hx Developmental Delay, Hx Headaches, Hx Migraine, Hx Nerve Disease, Hx Seizures, Hx Spinal Cord Injury, Hx Transient Ischemic Attacks (TIA) - Surgical History Surgery Procedure, Year, and Place: OPEN HEART, aortic valve replacement, bilateral knee replacements Hx Anesthesia Reactions: No Infectious Disease History: No Infectious Disease History: Denies: Hx Hepatitis, Hx Human Immunodeficiency Virus (HIV), Hx Shingles, Hx Tuberculosis, Traveled Outside the [place] in Last 30 Days - Family History Known Family History: Positive: Hypertension, Diabetes - Social History Alcohol Use: None Hx Substance Use: No Substance Use Type: Reports: None Hx Tobacco Use: Yes Smoking Status (MU): Former Smoker Type: Cigarettes Amount Used/How Often: QUIT IN 1991 Review of Systems Positive: Cough Neurological: Other - Lightheadedness All Other Systems Reviewed And Are Negative: Yes Physical Exam - Summary Physical Exam Summary: Appearance: Well appearing, no pain distress Skin: warm, dry, reflects adequate perfusion Head/face: normal Eyes: EOMI, JESS ENT: normal Neck: supple, non-tender Respiratory: CTA, breath sounds present Cardiovascular: irregularly irregular heart beat Abdomen: non-tender, soft Musculoskeletal: normal, strength/ROM intact Neuro: normal, sensory motor intact, A&Ox3 GCS: 15 Triage Information Reviewed: Yes Vital Signs On Initial Exam: Initial Vitals Temp Pulse Resp BP Pulse Ox 98.6 F 91 16 122/77 98 09/30/18 11:47 09/30/18 11:47 09/30/18 11:47 09/30/18 11:47 09/30/18 11:47 Vital Signs Reviewed: Yes Diagnostics - Vital Signs Vital Signs Temp Pulse Resp BP Pulse Ox 09/30/18 11:47 98.6 F 91 16 122/77 98 - Laboratory Result Diagrams: 09/30/18 12:23 09/30/18 12:23 Lab Statement: Any lab studies that have been ordered have been reviewed, and results considered in the medical decision making process. - Radiology CXR Radiology Interpretation Completed By: Radiologist Summary of Radiographic Findings: Cardiomegaly with CHF. Dr. Greenberg has reviewed this radiology report. - CT Brain CT Interpretation Completed By: Radiologist Summary of CT Findings: No intracranial mass or hemorrhage is noted. Dr. Greenberg has reviewed this radiology report. - EKG 1150 Cardiac Rate: NL - 60 BPM EKG Rhythm: Atrial Flutter Summary of EKG Findings: Atrial flutter at 60 BPM, RBBB. Re-Evaluation - Re-Evaluation First Eval Re-Evaluation Time: 13:50 Change: Improved Comment: Discussed results with patient. Patient reports feeling better. Therefore, patient will be discharged home with dx of dizziness. Patient understands and agrees with this plan. Disposition - Course Course Of Treatment: This patient is a 73 year old M brought to ED via EMS with a chief complaint of lightheadedness since 0600 this morning. Blood work obtained. EKG revealed atrial flutter at 60 BPM, RBBB. CXR revealed: Cardiomegaly with CHF. Brain CT revealed No intracranial mass or hemorrhage is noted. Discussed patient case with Dr. Crowe, vat house laborer, who recommended the patient continue Eliquis and see a vat house laborer as an out-patient. Therefore , patient will be discharged home with dx of dizziness. Patient understands and agrees with this plan. - Differential Dx - Cardiopulmonary Differential Diagnoses - Cardiopulmonary: Atrial Flutter, Other - dizziness - Diagnoses Provider Diagnoses: Dizziness - Physician Notifications Discussed Care Of Patient With: Marisol Crowe Time Discussed With Above Provider: 13:45 Instructed by Provider To: Other - Discussed patient case with Dr. Crowe, vat house laborer, who recommended the patient continue his Eliquis and be seen as an out-patient. Discharge - Sign-Out/Discharge Documenting (check all that apply): Patient Departure - Discharge Patient Received Moderate/Deep Sedation with Procedure: No - Discharge Plan Condition: Stable Disposition: HOME Patient Education Materials: Atrial Flutter (ED), Dizziness (ED) Referrals: Riana Valdes MD [Primary Care Provider] - 3 Days Marisol Crowe MD [Medical Doctor] - 3 Days Additional Instructions: Follow up with your primary care provider in three days. RETURN TO THE ER FOR WORSENING OR CHANGING SYMPTOMS. - Billing Disposition and Condition Condition: STABLE Disposition: Home - Attestation Statements Document Initiated by Scribe: Yes Documenting Scribe: Tacho Prakash Provider For Whom Scribe is Documenting (Include Credential): Dougie Greenberg MD Scribe Attestation: I, Tacho Prakash, scribed for Dougie Greenberg MD on 09/30/18 at 1405. Scribe Documentation Reviewed: Yes Provider Attestation: The documentation as recorded by the dawitibe, Tacho Prakash accurately reflects the service I personally performed and the decisions made by me, Dougie Greenberg MD Status of Scribe Document: Viewed
[2018-09-30 12:34] LABS: ABS Eosinophils 0.6 10^3/ul (0-0.6); ABS Lymphocytes 0.4 10^3/ul (1.0-4.8); ABS Monocytes 1.1 10^3/ul (0-0.8); ABS Neutrophils 3.1 10^3/ul (1.5-7.7); Eosinophil % 11.4 %; Hematocrit 41 % (42-52); Hemoglobin 13.6 g/dL (14.0-18.0); Lymphocyte % 7.4 %; Mean Corpuscular HGB Conc 33 g/dL (31-36); Mean Corpuscular Hemoglobin 30 pg (27-31); Mean Corpuscular Volume 91 fL (80-94); Mean Platelet Volume 7.4 fL (7.4-10.4); Platelet Count 160 10^3/uL (150-450); Red Blood Count 4.52 10^6 /uL (4.18-5.48); Red Cell Distribution Width 15 % (10-15); White Blood Count 5.2 10^3/uL (3.5-10.8)
[2018-09-30 12:44] LABS: Activated Partial Thrombo Time 34.6 seconds (26.0-38.0); INR 1.25 (0.82-1.09)
[2018-09-30 12:51] LABS: Albumin 4.4 g/dL (3.2-5.2); Albumin/Globulin Ratio 1.4 (1-3); BUN/Creatinine Ratio 18.2 (8-20); Calcium 9.6 mg/dL (8.6-10.3); EGFR African American 102.4 (>60); EGFR Non-African American 84.7 (>60); Globulin 3.1 g/dL (2-4); Magnesium 2.2 mg/dL (1.9-2.7); Potassium 4.4 mmol/L (3.5-5.0); Total Bilirubin 0.6 mg/dL (0.2-1.0); Total Protein 7.5 g/dL (6.4-8.9)
[2018-09-30 12:52] LABS: Troponin I 0.01 ng/mL (<0.04)
[2018-09-30 13:41] LABS: TSH (Thyroid Stimulating Horm) 0.73 mcIU/mL (0.34-5.60)
[2018-09-30 14:08] VITALS: BP 111/64
== END 2018-09-30 14:09 | disposition home or self-care (01) ==
LOC: ED 11:35
DX: R42 Dizziness and giddiness (principal); I51.7 Cardiomegaly; I50.9 Heart failure, unspecified; I48.92 Unspecified atrial flutter; I44.0 Atrioventricular block, first degree; I45.10 Unspecified right bundle-branch block; J44.9 Chronic obstructive pulmonary disease, unspecified; I73.9 Peripheral vascular disease, unspecified; E11.9 Type 2 diabetes mellitus without complications; Z95.2 Presence of prosthetic heart valve; Z79.01 Long term (current) use of anticoagulants; Z88.0 Allergy status to penicillin; Z79.51 Long term (current) use of inhaled steroids; Z87.01 Personal history of pneumonia (recurrent); Z87.891 Personal history of nicotine dependence; Z86.718 Personal history of other venous thrombosis and embolism
CPT/HCPCS: 36415; 70450; 71045; 80053; 83735; 83880; 84443; 84484; 85025; 85610; 85730; 93005; 99283

== ENCOUNTER 2022-05-03 09:42 | Inpatient (IN) ==
[2022-05-03 10:41] LABS: PCO2 Arterial 38 mmHg (35-45); PO2 Arterial 72 mmHg (80-100)
[2022-05-03 10:58] LABS: ABS Eosinophils 0.2 10^3/ul (0-0.6); ABS Lymphocytes 0.4 10^3/ul (1.0-4.8); ABS Monocytes 0.6 10^3/ul (0-0.8); Eosinophil % 3.4 %; Hematocrit 39 % (42-52); Hemoglobin 12.8 g/dL (14.0-18.0); Lymphocyte % 5.5 %; Mean Corpuscular HGB Conc 33 g/dL (31-36); Mean Corpuscular Hemoglobin 29 pg (27-31); Mean Corpuscular Volume 88 fL (80-94); Mean Platelet Volume 7.6 fL (7.4-10.4); Platelet Count 197 10^3/uL (150-450); Red Blood Count 4.44 10^6 /uL (4.18-5.48); Red Cell Distribution Width 15 % (10-15); White Blood Count 7.2 10^3/uL (3.5-10.8)
[2022-05-03 11:59] LABS: Albumin 3.8 g/dL (3.2-5.2); Albumin/Globulin Ratio 1.4 (1-3); C Reactive Protein 97.97 mg/L (<8.01); Calcium 9.1 mg/dL (8.6-10.3); Creatinine, Serum 1.03 mg/dL (0.67-1.17); Globulin 2.8 g/dL (2-4); Potassium 4.3 mmol/L (3.5-5.0); Total Bilirubin 0.8 mg/dL (0.2-1.0); Total Protein 6.6 g/dL (6.4-8.9); eGFR CKD-EPI 74.8 (>60)
[2022-05-03 12:11] LABS: High Sensitivity Troponin 1 Hr 15 pg/mL (<20)
[2022-05-03] MEDS ORDERED: Iodixanol (CONTRAST) 320 MG/ML 100 ML SDV IV ONE (12:39)
[2022-05-03] MEDS ORDERED: Albuterol HFA INHALER 8 gm MDI INH ONE (13:55)
[2022-05-03] MEDS ORDERED: Dexamethasone IV 4 MG/ML VIAL 1 ml VIAL IV SLOW PU ONE (13:55)
[2022-05-03] MEDS: cefTRIAXone 1 gm/50 mL D5W 1 GM/50 ML BAG IV SCH (16:39)
[2022-05-03] MEDS: Azithromycin 500 mg/250 ml NS 500 MG/250 ML BAG IVPB SCH (16:42)
[2022-05-04 06:39] LABS: ABS Lymphocytes 0.3 10^3/ul (1.0-4.8); ABS Monocytes 0.4 10^3/ul (0-0.8); ABS Neutrophils 5.4 10^3/ul (1.5-7.7); Hematocrit 37 % (42-52); Lymphocyte % 5.6 %; Mean Corpuscular HGB Conc 33 g/dL (31-36); Mean Corpuscular Hemoglobin 28 pg (27-31); Mean Corpuscular Volume 87 fL (80-94); Mean Platelet Volume 7.6 fL (7.4-10.4); Platelet Count 206 10^3/uL (150-450); Red Blood Count 4.23 10^6 /uL (4.18-5.48); Red Cell Distribution Width 15 % (10-15); White Blood Count 6.2 10^3/uL (3.5-10.8)
[2022-05-04 06:57] LABS: Calcium 8.8 mg/dL (8.6-10.3); Creatinine, Serum 0.84 mg/dL (0.67-1.17); Magnesium 2.2 mg/dL (1.9-2.7); Potassium 4.1 mmol/L (3.5-5.0); eGFR CKD-EPI 89.8 (>60)
[2022-05-04] MEDS ORDERED: Budesonide NEB 0.5 MG/2 ML NEB.SOLN INH SCH (09:00)
[2022-05-04] MEDS: Budesonide NEB 0.5 MG/2 ML NEB.SOLN INH SCH ×2 (09:45→19:24)
[2022-05-04] MEDS: NF: Mirabegron 50 mg ER TAB (NF) PO SCH (09:51)
[2022-05-04] MEDS: Aspirin EC 81 mg TAB.EC (enteric coated) PO SCH (09:51)
[2022-05-04] MEDS: Fluticasone NASAL SPRAY 50MCG 16 gm SPRAY BTL INTRANASAL SCH (09:52)
[2022-05-04] MEDS: Saline NASAL SPRAY 0.65% BTL BOTH NARES SCH (09:52)
[2022-05-04] MEDS: Potassium Chlor 10 meq TAB PO SCH (09:52)
[2022-05-04 10:05] LABS: Urine Appearance Clear; Urine Bilirubin Negative (Negative); Urine Blood Negative (Negative); Urine Color Yellow; Urine Glucose Negative (Negative); Urine Ketones Negative (Negative); Urine Nitrite Negative (Negative); Urine Protein 1+(30 mg/dL) (Negative); Urine Specific Gravity 1.036 (1.002-1.030); Urine Urobilinogen Negative (Negative)
[2022-05-04 10:11] LABS: Urine Bacteria Absent (Absent); Urine Red Blood Cell Absent (Absent); Urine White Blood Cell Absent (Absent)
[2022-05-04] MEDS: cefTRIAXone 1 gm/50 mL D5W 1 GM/50 ML BAG IV SCH (16:49)
[2022-05-04] MEDS: Azithromycin 500 mg/250 ml NS 500 MG/250 ML BAG IVPB SCH (17:41)
[2022-05-05 05:56] LABS: ABS Lymphocytes 0.8 10^3/ul (1.0-4.8); ABS Monocytes 0.8 10^3/ul (0-0.8); Eosinophil % 0.5 %; Hematocrit 36 % (42-52); Hemoglobin 11.6 g/dL (14.0-18.0); Lymphocyte % 9.6 %; Mean Corpuscular HGB Conc 33 g/dL (31-36); Mean Corpuscular Hemoglobin 29 pg (27-31); Mean Corpuscular Volume 88 fL (80-94); Mean Platelet Volume 7.2 fL (7.4-10.4); Platelet Count 201 10^3/uL (150-450); Red Blood Count 4.06 10^6 /uL (4.18-5.48); Red Cell Distribution Width 15 % (10-15); White Blood Count 8.7 10^3/uL (3.5-10.8)
[2022-05-05 06:40] LABS: Calcium 8.7 mg/dL (8.6-10.3); Creatinine, Serum 0.75 mg/dL (0.67-1.17); Magnesium 2.2 mg/dL (1.9-2.7); Potassium 4.3 mmol/L (3.5-5.0); eGFR CKD-EPI 92.9 (>60)
[2022-05-05] MEDS: Budesonide NEB 0.5 MG/2 ML NEB.SOLN INH SCH ×2 (07:39→19:21)
[2022-05-05] MEDS: Aspirin EC 81 mg TAB.EC (enteric coated) PO SCH (08:42)
[2022-05-05] MEDS: Potassium Chlor 10 meq TAB PO SCH (08:42)
[2022-05-05] MEDS: NF: Mirabegron 50 mg ER TAB (NF) PO SCH (10:13)
[2022-05-05] MEDS: Albuterol/Ipratropium NEB.SOL (2.5/0.5 MG) 3 ML NEB.SOLN INH PRN ×2 (10:55→19:21)
[2022-05-05] MEDS ORDERED: methylPREDNISolone SOD SUCC 40 mg/ml 1 ml VIAL IV SCH (11:30)
[2022-05-05] MEDS: Magnesium Hydroxide LIQ 30 ML UDC PO SCH ×2 (12:00→21:43)
[2022-05-05] MEDS: Saline NASAL SPRAY 0.65% BTL BOTH NARES SCH (12:01)
[2022-05-05] MEDS: Fluticasone NASAL SPRAY 50MCG 16 gm SPRAY BTL INTRANASAL SCH ×2 (12:02→14:42)
[2022-05-05] MEDS: cefTRIAXone 1 gm/50 mL D5W 1 GM/50 ML BAG IV SCH (17:00)
[2022-05-05] MEDS: Azithromycin 500 mg/250 ml NS 500 MG/250 ML BAG IVPB SCH (17:59)
[2022-05-05] MEDS: methylPREDNISolone SOD SUCC 40 mg/ml 1 ml VIAL IV SCH (21:43)
[2022-05-05] MEDS ORDERED: Albuterol 2.5mg/3 ml (0.083%) NEB.SOLN INH PRN (22:00)
[2022-05-06 06:37] LABS: ABS Lymphocytes 0.3 10^3/ul (1.0-4.8); ABS Monocytes 0.2 10^3/ul (0-0.8); ABS Neutrophils 5.9 10^3/ul (1.5-7.7); Hematocrit 35 % (42-52); Hemoglobin 11.5 g/dL (14.0-18.0); Lymphocyte % 5.2 %; Mean Corpuscular HGB Conc 33 g/dL (31-36); Mean Corpuscular Hemoglobin 29 pg (27-31); Mean Corpuscular Volume 88 fL (80-94); Mean Platelet Volume 7.3 fL (7.4-10.4); Platelet Count 205 10^3/uL (150-450); Red Blood Count 3.99 10^6 /uL (4.18-5.48); Red Cell Distribution Width 15 % (10-15); White Blood Count 6.5 10^3/uL (3.5-10.8)
[2022-05-06 07:09] LABS: Calcium 8.6 mg/dL (8.6-10.3); Creatinine, Serum 0.75 mg/dL (0.67-1.17); Magnesium 2.5 mg/dL (1.9-2.7); Potassium 4.4 mmol/L (3.5-5.0); eGFR CKD-EPI 92.9 (>60)
[2022-05-06] MEDS: Budesonide NEB 0.5 MG/2 ML NEB.SOLN INH SCH ×2 (07:19→19:29)
[2022-05-06] MEDS: SPIRIVA Respimat (tiotropium) 2.5 mcg/inh Inhaler INH SCH (07:23)
[2022-05-06] MEDS: methylPREDNISolone SOD SUCC 40 mg/ml 1 ml VIAL IV SCH ×3 (10:07→20:28)
[2022-05-06] MEDS: Potassium Chlor 10 meq TAB PO SCH (10:14)
[2022-05-06] MEDS: Aspirin EC 81 mg TAB.EC (enteric coated) PO SCH (10:15)
[2022-05-06] MEDS: Sulfamethox/Trimethoprim DS TAB 800/160 mg PO SCH (10:16)
[2022-05-06] MEDS: Fluticasone NASAL SPRAY 50MCG 16 gm SPRAY BTL INTRANASAL SCH (10:18)
[2022-05-06] MEDS: Saline NASAL SPRAY 0.65% BTL BOTH NARES SCH (10:18)
[2022-05-06] MEDS: Magnesium Hydroxide LIQ 30 ML UDC PO SCH ×2 (10:20→20:33)
[2022-05-06] MEDS: NF: Mirabegron 50 mg ER TAB (NF) PO SCH (10:20)
[2022-05-06] MEDS ORDERED: Furosemide 20 mg/2 ml IV VIAL IV SLOW PU ONE (16:12)
[2022-05-07 06:09] LABS: ABS Lymphocytes 0.4 10^3/ul (1.0-4.8); ABS Monocytes 0.3 10^3/ul (0-0.8); ABS Neutrophils 6.2 10^3/ul (1.5-7.7); Hematocrit 37 % (42-52); Hemoglobin 12.1 g/dL (14.0-18.0); Lymphocyte % 5.7 %; Mean Corpuscular HGB Conc 33 g/dL (31-36); Mean Corpuscular Hemoglobin 29 pg (27-31); Mean Corpuscular Volume 87 fL (80-94); Mean Platelet Volume 7.4 fL (7.4-10.4); Platelet Count 235 10^3/uL (150-450); Red Cell Distribution Width 15 % (10-15)
[2022-05-07] MEDS: methylPREDNISolone SOD SUCC 40 mg/ml 1 ml VIAL IV SCH ×3 (06:30→21:23)
[2022-05-07 06:48] LABS: Calcium 8.8 mg/dL (8.6-10.3); Creatinine, Serum 0.85 mg/dL (0.67-1.17); Magnesium 2.5 mg/dL (1.9-2.7); Potassium 4.6 mmol/L (3.5-5.0); eGFR CKD-EPI 89.5 (>60)
[2022-05-07] MEDS: Budesonide NEB 0.5 MG/2 ML NEB.SOLN INH SCH ×2 (07:22→19:27)
[2022-05-07] MEDS: SPIRIVA Respimat (tiotropium) 2.5 mcg/inh Inhaler INH SCH (07:23)
[2022-05-07] MEDS: Potassium Chlor 10 meq TAB PO SCH (09:05)
[2022-05-07] MEDS: Aspirin EC 81 mg TAB.EC (enteric coated) PO SCH (09:05)
[2022-05-07] MEDS: Sulfamethox/Trimethoprim DS TAB 800/160 mg PO SCH (09:05)
[2022-05-07] MEDS: Magnesium Hydroxide LIQ 30 ML UDC PO SCH ×2 (09:06→21:21)
[2022-05-07] MEDS: Saline NASAL SPRAY 0.65% BTL BOTH NARES SCH (09:06)
[2022-05-07] MEDS: NF: Mirabegron 50 mg ER TAB (NF) PO SCH (09:07)
[2022-05-07] MEDS: Fluticasone NASAL SPRAY 50MCG 16 gm SPRAY BTL INTRANASAL SCH (09:07)
[2022-05-08] MEDS: Budesonide NEB 0.5 MG/2 ML NEB.SOLN INH SCH (06:45)
[2022-05-08] MEDS: SPIRIVA Respimat (tiotropium) 2.5 mcg/inh Inhaler INH SCH ×2 (06:46→07:00)
[2022-05-08 07:11] LABS: ABS Lymphocytes 0.4 10^3/ul (1.0-4.8); ABS Monocytes 0.4 10^3/ul (0-0.8); ABS Neutrophils 5.5 10^3/ul (1.5-7.7); Eosinophil % 0.1 %; Hematocrit 43 % (42-52); Hemoglobin 13.9 g/dL (14.0-18.0); Mean Corpuscular HGB Conc 32 g/dL (31-36); Mean Corpuscular Hemoglobin 29 pg (27-31); Mean Corpuscular Volume 91 fL (80-94); Mean Platelet Volume 8.8 fL (7.4-10.4); Platelet Count 204 10^3/uL (150-450); Red Blood Count 4.75 10^6 /uL (4.18-5.48); Red Cell Distribution Width 15 % (10-15); White Blood Count 6.3 10^3/uL (3.5-10.8)
[2022-05-08 07:54] LABS: Calcium 9.2 mg/dL (8.6-10.3); Creatinine, Serum 0.8 mg/dL (0.67-1.17); Magnesium 2.5 mg/dL (1.9-2.7); Potassium 4.7 mmol/L (3.5-5.0); eGFR CKD-EPI 91.1 (>60)
[2022-05-08] MEDS: NF: Mirabegron 50 mg ER TAB (NF) PO SCH (09:56)
[2022-05-08] MEDS: Saline NASAL SPRAY 0.65% BTL BOTH NARES SCH (10:03)
[2022-05-08] MEDS: Fluticasone NASAL SPRAY 50MCG 16 gm SPRAY BTL INTRANASAL SCH (10:03)
[2022-05-08] MEDS: Aspirin EC 81 mg TAB.EC (enteric coated) PO SCH (10:04)
[2022-05-08] MEDS: Sulfamethox/Trimethoprim DS TAB 800/160 mg PO SCH (10:06)
[2022-05-08] MEDS: Magnesium Hydroxide LIQ 30 ML UDC PO SCH (10:22)
[2022-05-08 11:40] VITALS: BP 106/55
== END 2022-05-08 13:30 | disposition home or self-care (01) | DRG 542 ==
LOC: EDHOLD 09:42 → ED 09:42 → MEDTELE 18:00 → SUATTDRO 05-04 14:35
PROVIDERS: ADMIT Internal Medicine; ATTEND Internal Medicine

== ENCOUNTER 2022-12-04 16:22 | Inpatient (IN) ==
[2022-12-04] MEDS ORDERED: Albuterol/Ipratropium NEB.SOL (2.5/0.5 MG) 3 ML NEB.SOLN INH ONE ×2 (17:38→19:39)
[2022-12-04 18:52] LABS: ABS Lymphocytes 0.3 10^3/uL (1.0-4.8); ABS Monocytes 0.2 10^3/uL (0.0-1.1); ABS Neutrophils 6.7 10^3/uL (1.5-7.6); Hematocrit 43.7 % (38-53); Hemoglobin 14.6 g/dL (13.2-16.3); Lymphocyte % 3.7 %; Mean Corpuscular Hemoglobin 30.1 pg (27-33); Mean Corpuscular Hgb Conc 33.5 g/dL (31-36); Mean Corpuscular Volume 89.7 fL (80-97); Mean Platelet Volume 8.1 fL (7.5-11.2); Platelet Count 164 10^3/uL (150-450); Red Blood Count 4.87 10^6/uL (4.06-5.63); Red Cell Distribution Width 15.8 % (12-17); White Blood Count 7.2 10^3/uL (3.6-10.2)
[2022-12-04 19:10] LABS: Albumin 4.3 g/dL (3.2-5.2); Albumin/Globulin Ratio 1.3 (1-3); C Reactive Protein 1.76 mg/L (<8.01); Calcium 9.8 mg/dL (8.6-10.3); Creatinine, Serum 0.8 mg/dL (0.67-1.17); Globulin 3.4 g/dL (2-4); Potassium 4.8 mmol/L (3.5-5.0); Total Bilirubin 0.6 mg/dL (0.2-1.0); Total Protein 7.7 g/dL (6.4-8.9); eGFR CKD-EPI 90.6 (>60)
[2022-12-04] MEDS ORDERED: Iodixanol (CONTRAST) 320 MG/ML 100 ML SDV IV ONE (19:54)
[2022-12-04 20:14] LABS: High Sensitivity Troponin 1 Hr 29 pg/mL (<20)
[2022-12-04] MEDS ORDERED: Azithromycin 500 mg/250 ml NS 500 MG/250 ML BAG IVPB ONE (21:04)
[2022-12-04] MEDS: methylPREDNISolone SOD SUCC 125 mg 2 ML VIAL IV SCH (21:29)
[2022-12-04] MEDS ORDERED: Budesonide NEB 0.5 MG/2 ML NEB.SOLN INH SCH (23:00)
[2022-12-04] MEDS ORDERED: Albuterol/Ipratropium NEB.SOL (2.5/0.5 MG) 3 ML NEB.SOLN INH SCH (23:00)
[2022-12-04] MEDS: cefTRIAXone 1 gm/50 mL D5W 1 GM/50 ML BAG IV SCH (23:12)
[2022-12-04] MEDS: Budesonide NEB 0.5 MG/2 ML NEB.SOLN INH SCH (23:50)
[2022-12-04] MEDS: NINTEDANIB ESYLATE 150 MG PO SCH (23:54)
[2022-12-05] MEDS ORDERED: Metoprolol Tartrate 5 mg VIAL 5 ml VIAL (1 mg/ml) IV ONE (01:13)
[2022-12-05] MEDS: methylPREDNISolone SOD SUCC 125 mg 2 ML VIAL IV SCH ×3 (05:04→22:30)
[2022-12-05 05:13] LABS: ABS Lymphocytes 0.2 10^3/uL (1.0-4.8); ABS Monocytes 0.1 10^3/uL (0.0-1.1); ABS Neutrophils 4.9 10^3/uL (1.5-7.6); Hematocrit 39.9 % (38-53); Hemoglobin 13.4 g/dL (13.2-16.3); Lymphocyte % 4.6 %; Mean Corpuscular Hemoglobin 30.1 pg (27-33); Mean Corpuscular Hgb Conc 33.6 g/dL (31-36); Mean Corpuscular Volume 89.4 fL (80-97); Mean Platelet Volume 8.1 fL (7.5-11.2); Nucleated Red Blood Cells % 0.1 /100 WBC (0.0-0.4); Platelet Count 159 10^3/uL (150-450); Red Blood Count 4.47 10^6/uL (4.06-5.63); Red Cell Distribution Width 15.6 % (12-17); White Blood Count 5.2 10^3/uL (3.6-10.2)
[2022-12-05 05:30] LABS: Albumin 3.9 g/dL (3.2-5.2); Albumin/Globulin Ratio 1.3 (1-3); Calcium 9.4 mg/dL (8.6-10.3); Creatinine, Serum 0.81 mg/dL (0.67-1.17); Globulin 3.1 g/dL (2-4); Potassium 4.6 mmol/L (3.5-5.0); Total Bilirubin 0.5 mg/dL (0.2-1.0); eGFR CKD-EPI 90.2 (>60)
[2022-12-05] MEDS: Budesonide NEB 0.5 MG/2 ML NEB.SOLN INH SCH ×2 (09:10→19:07)
[2022-12-05] MEDS: Aspirin EC 81 mg TAB.EC (enteric coated) PO SCH (09:42)
[2022-12-05] MEDS: Vitamin THERAPEUTIC TAB PO SCH (09:43)
[2022-12-05] MEDS: Potassium Chlor 10 meq TAB PO SCH (09:43)
[2022-12-05] MEDS: Cholecalciferol (VIT D3) 1,000 unit TAB PO SCH (09:44)
[2022-12-05] MEDS: Saline NASAL SPRAY 0.65% BTL BOTH NARES SCH (09:46)
[2022-12-05] MEDS: BETAMETHASONE AUGMENTED 0.05% TOPICAL SCH ×2 (11:14→21:10)
[2022-12-05] MEDS: FLUOCINONIDE 0.05% TOPICAL SCH (11:14)
[2022-12-05] MEDS: SACCHAROMYCES BOULARDII 250 MG PO SCH ×2 (11:15→21:10)
[2022-12-05] MEDS: PTO: Mirabegron 50 mg ER TAB (NF) PO SCH (11:15)
[2022-12-05] MEDS: NINTEDANIB ESYLATE 150 MG PO SCH ×2 (11:16→21:10)
[2022-12-05] MEDS: cefTRIAXone 1 gm/50 mL D5W 1 GM/50 ML BAG IV SCH (22:34)
[2022-12-06] MEDS: methylPREDNISolone SOD SUCC 125 mg 2 ML VIAL IV SCH ×3 (05:31→22:43)
[2022-12-06] MEDS: Budesonide NEB 0.5 MG/2 ML NEB.SOLN INH SCH ×2 (07:40→19:05)
[2022-12-06] MEDS: Saline NASAL SPRAY 0.65% BTL BOTH NARES SCH (08:37)
[2022-12-06] MEDS: Cholecalciferol (VIT D3) 1,000 unit TAB PO SCH (08:38)
[2022-12-06] MEDS: Aspirin EC 81 mg TAB.EC (enteric coated) PO SCH (08:38)
[2022-12-06] MEDS: Vitamin THERAPEUTIC TAB PO SCH (08:38)
[2022-12-06] MEDS: Potassium Chlor 10 meq TAB PO SCH (08:38)
[2022-12-06] MEDS: FLUOCINONIDE 0.05% TOPICAL SCH (08:47)
[2022-12-06] MEDS: BETAMETHASONE AUGMENTED 0.05% TOPICAL SCH ×2 (08:47→21:44)
[2022-12-06] MEDS: SACCHAROMYCES BOULARDII 250 MG PO SCH (08:48)
[2022-12-06] MEDS: PTO: Mirabegron 50 mg ER TAB (NF) PO SCH (08:48)
[2022-12-06] MEDS: NINTEDANIB ESYLATE 150 MG PO SCH (10:04)
[2022-12-06] MEDS: cefTRIAXone 1 gm/50 mL D5W 1 GM/50 ML BAG IV SCH (21:46)
[2022-12-07] MEDS: methylPREDNISolone SOD SUCC 125 mg 2 ML VIAL IV SCH ×2 (05:01→14:14)
[2022-12-07] MEDS: Budesonide NEB 0.5 MG/2 ML NEB.SOLN INH SCH ×2 (07:05→19:30)
[2022-12-07] MEDS: Cholecalciferol (VIT D3) 1,000 unit TAB PO SCH (08:11)
[2022-12-07] MEDS: Vitamin THERAPEUTIC TAB PO SCH (08:11)
[2022-12-07] MEDS: Saline NASAL SPRAY 0.65% BTL BOTH NARES SCH (08:12)
[2022-12-07] MEDS: Aspirin EC 81 mg TAB.EC (enteric coated) PO SCH (08:12)
[2022-12-07] MEDS: Potassium Chlor 10 meq TAB PO SCH (08:12)
[2022-12-07] MEDS: PTO: Mirabegron 50 mg ER TAB (NF) PO SCH (08:13)
[2022-12-07] MEDS: PROBIOTIC ACIDOPHILUS PO SCH (08:13)
[2022-12-07] MEDS: FLUOCINONIDE 0.05% TOPICAL SCH (08:19)
[2022-12-07] MEDS: BETAMETHASONE AUGMENTED 0.05% TOPICAL SCH ×2 (08:19→20:27)
[2022-12-07] MEDS ORDERED: OFEV 100 MG PO SCH (09:00)
[2022-12-07] MEDS ORDERED: [UNRECOGNIZED DRUG - OTHER] PO SCH (09:00)
[2022-12-07] MEDS ORDERED: NINTEDANIB 100 MG PO SCH (09:00)
[2022-12-07] MEDS ORDERED: ACIDOPHILUS PO SCH (09:00)
[2022-12-07] MEDS: cefTRIAXone 1 gm/50 mL D5W 1 GM/50 ML BAG IV SCH (22:17)
[2022-12-08] MEDS: Budesonide NEB 0.5 MG/2 ML NEB.SOLN INH SCH ×2 (07:36→21:08)
[2022-12-08] MEDS: Potassium Chlor 10 meq TAB PO SCH (08:56)
[2022-12-08] MEDS: Vitamin THERAPEUTIC TAB PO SCH (08:56)
[2022-12-08] MEDS: Aspirin EC 81 mg TAB.EC (enteric coated) PO SCH (08:57)
[2022-12-08] MEDS: Cholecalciferol (VIT D3) 1,000 unit TAB PO SCH (08:57)
[2022-12-08] MEDS: BETAMETHASONE AUGMENTED 0.05% TOPICAL SCH ×2 (08:59→20:50)
[2022-12-08] MEDS: FLUOCINONIDE 0.05% TOPICAL SCH (08:59)
[2022-12-08] MEDS: Saline NASAL SPRAY 0.65% BTL BOTH NARES SCH (09:34)
[2022-12-08] MEDS: NINTEDANIB 100 MG PO SCH (09:52)
[2022-12-08] MEDS: PTO: Mirabegron 50 mg ER TAB (NF) PO SCH (09:52)
[2022-12-08] MEDS: PROBIOTIC ACIDOPHILUS PO SCH (09:54)
[2022-12-08] MEDS: cefTRIAXone 1 gm/50 mL D5W 1 GM/50 ML BAG IV SCH (22:16)
[2022-12-09] MEDS: Budesonide NEB 0.5 MG/2 ML NEB.SOLN INH SCH (08:12)
[2022-12-09] MEDS: Cholecalciferol (VIT D3) 1,000 unit TAB PO SCH (10:29)
[2022-12-09] MEDS: Aspirin EC 81 mg TAB.EC (enteric coated) PO SCH (10:30)
[2022-12-09] MEDS: PTO: Mirabegron 50 mg ER TAB (NF) PO SCH (10:35)
[2022-12-09] MEDS: PROBIOTIC ACIDOPHILUS PO SCH (10:35)
[2022-12-09] MEDS: Saline NASAL SPRAY 0.65% BTL BOTH NARES SCH (10:36)
[2022-12-09] MEDS: NINTEDANIB 100 MG PO SCH (10:37)
[2022-12-09] MEDS: Vitamin THERAPEUTIC TAB PO SCH (10:40)
[2022-12-09] MEDS: Potassium Chlor 10 meq TAB PO SCH (10:40)
[2022-12-09] MEDS: FLUOCINONIDE 0.05% TOPICAL SCH (10:43)
[2022-12-09] MEDS: BETAMETHASONE AUGMENTED 0.05% TOPICAL SCH (10:43)
[2022-12-09 16:32] VITALS: BP 99/66
== END 2022-12-09 15:50 | disposition home or self-care (01) | DRG 196 ==
LOC: ED 16:22 → EDHOLD 21:07 → SUATTDRO 21:07 → MEDTELE 12-05 09:14
PROVIDERS: ADMIT Internal Medicine; ATTEND Internal Medicine

== ENCOUNTER 2022-12-31 09:28 | Inpatient (IN) ==
[2022-12-31] MEDS ORDERED: methylPREDNISolone SOD SUCC 125 mg 2 ML VIAL IV ONE (09:42)
[2022-12-31 10:01] LABS: ABS Lymphocytes 0.6 10^3/uL (1.0-4.8); ABS Monocytes 0.6 10^3/uL (0.0-1.1); ABS Neutrophils 4.3 10^3/uL (1.5-7.6); ABS Nucleated RBC 0.01 10^3/ul; Eosinophil % 0.3 %; Hematocrit 41.1 % (38-53); Lymphocyte % 11.2 %; Mean Corpuscular Hemoglobin 30.6 pg (27-33); Mean Corpuscular Hgb Conc 34.1 g/dL (31-36); Mean Corpuscular Volume 89.9 fL (80-97); Mean Platelet Volume 8.5 fL (7.5-11.2); Nucleated Red Blood Cells % 0.1 /100 WBC (0.0-0.4); Platelet Count 133 10^3/uL (150-450); Red Blood Count 4.57 10^6/uL (4.06-5.63); Red Cell Distribution Width 16.3 % (12-17); White Blood Count 5.7 10^3/uL (3.6-10.2)
[2022-12-31 10:04] LABS: PCO2 Arterial 55 mmHg (35-45); PO2 Arterial 145 mmHg (80-100)
[2022-12-31 10:08] LABS: Activated Partial Thrombo Time 33.3 seconds (26.0-38.0); INR 1.3 (0.83-1.13)
[2022-12-31 10:30] LABS: Albumin 4.3 g/dL (3.2-5.2); Albumin/Globulin Ratio 1.4 (1-3); Calcium 9.7 mg/dL (8.6-10.3); Creatinine, Serum 0.71 mg/dL (0.67-1.17); Potassium 3.9 mmol/L (3.5-5.0); Total Protein 7.3 g/dL (6.4-8.9); eGFR CKD-EPI 93.9 (>60)
[2022-12-31 12:23] LABS: High Sensitivity Troponin 1 Hr 28 pg/mL (<20)
[2022-12-31] MEDS ORDERED: Albuterol 2.5mg/3 ml (0.083%) NEB.SOLN INH ONE (14:02)
[2022-12-31] MEDS ORDERED: Potassium Chlor 10 meq TAB PO ONE (14:06)
[2022-12-31 18:43] LABS: Urine Appearance Cloudy; Urine Bilirubin Negative (Negative); Urine Blood Negative (Negative); Urine Color Yellow; Urine Glucose 1+(50 mg/dL) (Negative); Urine Ketones Negative (Negative); Urine Nitrite Negative (Negative); Urine Protein 1+(30 mg/dL) (Negative); Urine Specific Gravity 1.013 (1.002-1.030); Urine Urobilinogen Negative (Negative)
[2022-12-31] MEDS: Budesonide NEB 0.5 MG/2 ML NEB.SOLN INH SCH (19:05)
[2022-12-31 19:09] LABS: Urine Bacteria Absent (Absent); Urine Red Blood Cell Trace(0-2/hpf) (Absent); Urine White Blood Cell Absent (Absent)
[2023-01-01 05:08] LABS: ABS Lymphocytes 0.3 10^3/uL (1.0-4.8); ABS Monocytes 0.5 10^3/uL (0.0-1.1); ABS Neutrophils 4.6 10^3/uL (1.5-7.6); Hematocrit 37.2 % (38-53); Hemoglobin 12.4 g/dL (13.2-16.3); Lymphocyte % 4.8 %; Mean Corpuscular Hemoglobin 29.9 pg (27-33); Mean Corpuscular Hgb Conc 33.4 g/dL (31-36); Mean Corpuscular Volume 89.5 fL (80-97); Nucleated Red Blood Cells % 0.1 /100 WBC (0.0-0.4); Platelet Count 111 10^3/uL (150-450); Red Blood Count 4.16 10^6/uL (4.06-5.63); White Blood Count 5.4 10^3/uL (3.6-10.2)
[2023-01-01 05:21] LABS: Calcium 8.9 mg/dL (8.6-10.3); Creatinine, Serum 0.67 mg/dL (0.67-1.17); Magnesium 2.2 mg/dL (1.9-2.7); Potassium 4.2 mmol/L (3.5-5.0); eGFR CKD-EPI 95.6 (>60)
[2023-01-01] MEDS: Budesonide NEB 0.5 MG/2 ML NEB.SOLN INH SCH ×2 (07:28→19:19)
[2023-01-01] MEDS: CMCS:Mirabegron 25 mg ER TAB (NF) PO SCH (08:53)
[2023-01-01] MEDS: Aspirin EC 81 mg TAB.EC (enteric coated) PO SCH (08:54)
[2023-01-01] MEDS: Cholecalciferol (VIT D3) 1,000 unit TAB PO SCH (08:54)
[2023-01-01] MEDS: Potassium Chlor 10 meq TAB PO SCH (08:54)
[2023-01-01] MEDS: Saline NASAL SPRAY 0.65% BTL BOTH NARES SCH (08:55)
[2023-01-01] MEDS: Calcium Polycarbophil 625mg TB PO SCH (08:55)
[2023-01-01] MEDS ORDERED: AUTO INJECTOR SUBCUT SCH (09:00)
[2023-01-01] MEDS ORDERED: BENRALIZUMAB 30 MG/ML SUBCUT SCH (09:00)
[2023-01-01] MEDS: NINTEDANIB 100 MG PO SCH (09:12)
[2023-01-01] MEDS: Triamcinolone 0.5% OINT 1 TUBE TOPICAL SCH ×2 (09:59→19:58)
[2023-01-01] MEDS ORDERED: methylPREDNISolone SOD SUCC 125 mg 2 ML VIAL IV ONE (11:00)
[2023-01-01] MEDS: FLUOCINONIDE 0.05% TOPICAL SCH (13:55)
[2023-01-01] MEDS: methylPREDNISolone SOD SUCC 40 mg/ml 1 ml VIAL IV SCH (19:58)
[2023-01-01 21:12] LABS: Potassium 4.3 mmol/L (3.5-5.0)
[2023-01-01 21:18] LABS: Creatinine, Serum 0.59 mg/dL (0.67-1.17); eGFR CKD-EPI 99.3 (>60)
[2023-01-02] MEDS: methylPREDNISolone SOD SUCC 40 mg/ml 1 ml VIAL IV SCH ×3 (03:33→19:04)
[2023-01-02] MEDS: Budesonide NEB 0.5 MG/2 ML NEB.SOLN INH SCH ×2 (07:23→19:37)
[2023-01-02] MEDS: Aspirin EC 81 mg TAB.EC (enteric coated) PO SCH (08:15)
[2023-01-02] MEDS: Cholecalciferol (VIT D3) 1,000 unit TAB PO SCH (08:15)
[2023-01-02] MEDS: Potassium Chlor 10 meq TAB PO SCH (08:15)
[2023-01-02] MEDS: Saline NASAL SPRAY 0.65% BTL BOTH NARES SCH (08:16)
[2023-01-02] MEDS: Triamcinolone 0.5% OINT 1 TUBE TOPICAL SCH ×2 (08:16→20:19)
[2023-01-02] MEDS: FLUOCINONIDE 0.05% TOPICAL SCH (08:18)
[2023-01-02] MEDS: NINTEDANIB 100 MG PO SCH (08:18)
[2023-01-02] MEDS: CMCS:Mirabegron 25 mg ER TAB (NF) PO SCH (11:40)
[2023-01-02] MEDS: Calcium Polycarbophil 625mg TB PO SCH (11:40)
[2023-01-02] MEDS ORDERED: Acetaminophen IV 1 GM/100ML 1,000 MG/100 ML BAG IV PRN (16:59)
[2023-01-02] MEDS ORDERED: Acetaminophen IV 1 GM/100ML 1,000 MG/100 ML BAG IV ONE (17:03)
[2023-01-02] MEDS: Acetylcysteine ORAL SOL 200 mg/ml 30 ml VIAL PO SCH (20:58)
[2023-01-02] MEDS: Acetylcysteine INH SOL (RT) 200 MG/ML 4 ML VIAL INH SCH (21:59)
[2023-01-02] MEDS: Albuterol HFA INHALER 8 gm MDI INH SCH (21:59)
[2023-01-03] MEDS: Albuterol HFA INHALER 8 gm MDI INH SCH ×2 (01:34→05:32)
[2023-01-03] MEDS: Acetylcysteine INH SOL (RT) 200 MG/ML 4 ML VIAL INH SCH ×2 (01:48→05:30)
[2023-01-03] MEDS: methylPREDNISolone SOD SUCC 40 mg/ml 1 ml VIAL IV SCH ×3 (04:30→19:44)
[2023-01-03] MEDS: Budesonide NEB 0.5 MG/2 ML NEB.SOLN INH SCH ×2 (07:30→18:51)
[2023-01-03] MEDS: CMCS:Mirabegron 25 mg ER TAB (NF) PO SCH (08:50)
[2023-01-03] MEDS: Calcium Polycarbophil 625mg TB PO SCH (08:50)
[2023-01-03] MEDS: Triamcinolone 0.5% OINT 1 TUBE TOPICAL SCH ×2 (08:50→21:24)
[2023-01-03] MEDS: SELENIUM 200 MCG PO SCH (08:50)
[2023-01-03] MEDS: Potassium Chlor 10 meq TAB PO SCH (08:51)
[2023-01-03] MEDS: Cholecalciferol (VIT D3) 1,000 unit TAB PO SCH (08:52)
[2023-01-03] MEDS: Aspirin EC 81 mg TAB.EC (enteric coated) PO SCH (08:52)
[2023-01-03] MEDS: FLUOCINONIDE 0.05% TOPICAL SCH (08:52)
[2023-01-03] MEDS: Saline NASAL SPRAY 0.65% BTL BOTH NARES SCH (08:53)
[2023-01-03] MEDS: Acetylcysteine ORAL SOL 200 mg/ml 30 ml VIAL PO SCH ×2 (08:53→21:23)
[2023-01-03] MEDS: NINTEDANIB 100 MG PO SCH (08:54)
[2023-01-04] MEDS: methylPREDNISolone SOD SUCC 40 mg/ml 1 ml VIAL IV SCH ×3 (05:12→20:15)
[2023-01-04 06:37] LABS: Creatinine, Serum 0.66 mg/dL (0.67-1.17); Magnesium 2.3 mg/dL (1.9-2.7); Potassium 4.5 mmol/L (3.5-5.0)
[2023-01-04] MEDS: Budesonide NEB 0.5 MG/2 ML NEB.SOLN INH SCH ×2 (07:52→19:33)
[2023-01-04] MEDS: CMCS:Mirabegron 25 mg ER TAB (NF) PO SCH (09:19)
[2023-01-04] MEDS: Aspirin EC 81 mg TAB.EC (enteric coated) PO SCH (09:20)
[2023-01-04] MEDS: Calcium Polycarbophil 625mg TB PO SCH (09:20)
[2023-01-04] MEDS: SELENIUM 200 MCG PO SCH (09:20)
[2023-01-04] MEDS: FLUOCINONIDE 0.05% TOPICAL SCH (09:20)
[2023-01-04] MEDS: Cholecalciferol (VIT D3) 1,000 unit TAB PO SCH (09:20)
[2023-01-04] MEDS: Potassium Chlor 10 meq TAB PO SCH (09:20)
[2023-01-04] MEDS: Triamcinolone 0.5% OINT 1 TUBE TOPICAL SCH ×2 (09:21→20:16)
[2023-01-04] MEDS: Saline NASAL SPRAY 0.65% BTL BOTH NARES SCH (09:21)
[2023-01-04] MEDS: NINTEDANIB 100 MG PO SCH ×2 (09:21→13:47)
[2023-01-04] MEDS: Acetylcysteine ORAL SOL 200 mg/ml 30 ml VIAL PO SCH (11:21)
[2023-01-05] MEDS: methylPREDNISolone SOD SUCC 40 mg/ml 1 ml VIAL IV SCH ×3 (02:47→20:58)
[2023-01-05 06:49] LABS: Creatinine, Serum 0.66 mg/dL (0.67-1.17); Magnesium 2.2 mg/dL (1.9-2.7); Potassium 4.3 mmol/L (3.5-5.0)
[2023-01-05] MEDS: Budesonide NEB 0.5 MG/2 ML NEB.SOLN INH SCH ×2 (07:09→20:58)
[2023-01-05] MEDS: NINTEDANIB 100 MG PO SCH (08:20)
[2023-01-05] MEDS: CMCS:Mirabegron 25 mg ER TAB (NF) PO SCH (08:20)
[2023-01-05] MEDS: Saline NASAL SPRAY 0.65% BTL BOTH NARES SCH (08:21)
[2023-01-05] MEDS: SELENIUM 200 MCG PO SCH (08:21)
[2023-01-05] MEDS: Aspirin EC 81 mg TAB.EC (enteric coated) PO SCH (08:21)
[2023-01-05] MEDS: Potassium Chlor 10 meq TAB PO SCH (08:21)
[2023-01-05] MEDS: Calcium Polycarbophil 625mg TB PO SCH (08:21)
[2023-01-05] MEDS: Cholecalciferol (VIT D3) 1,000 unit TAB PO SCH (08:21)
[2023-01-05] MEDS: FLUOCINONIDE 0.05% TOPICAL SCH (08:25)
[2023-01-05] MEDS: Triamcinolone 0.5% OINT 1 TUBE TOPICAL SCH ×2 (08:26→22:11)
[2023-01-06 06:48] LABS: ABS Lymphocytes 0.3 10^3/uL (1.0-4.8); ABS Monocytes 0.7 10^3/uL (0.0-1.1); ABS Neutrophils 5.5 10^3/uL (1.5-7.6); Hematocrit 40.6 % (38-53); Hemoglobin 13.7 g/dL (13.2-16.3); Lymphocyte % 4.7 %; Mean Corpuscular Hemoglobin 30.4 pg (27-33); Mean Corpuscular Hgb Conc 33.8 g/dL (31-36); Mean Corpuscular Volume 89.7 fL (80-97); Mean Platelet Volume 7.7 fL (7.5-11.2); Nucleated Red Blood Cells % 0.1 /100 WBC (0.0-0.4); Platelet Count 164 10^3/uL (150-450); Red Blood Count 4.52 10^6/uL (4.06-5.63); White Blood Count 6.5 10^3/uL (3.6-10.2)
[2023-01-06 08:02] LABS: Calcium 8.7 mg/dL (8.6-10.3); Creatinine, Serum 0.78 mg/dL (0.67-1.17); Magnesium 2.2 mg/dL (1.9-2.7); Potassium 4.4 mmol/L (3.5-5.0); eGFR CKD-EPI 91.3 (>60)
[2023-01-06] MEDS: Budesonide NEB 0.5 MG/2 ML NEB.SOLN INH SCH (09:09)
[2023-01-06] MEDS: NINTEDANIB 100 MG PO SCH (09:43)
[2023-01-06] MEDS: Saline NASAL SPRAY 0.65% BTL BOTH NARES SCH (09:43)
[2023-01-06] MEDS: Calcium Polycarbophil 625mg TB PO SCH (09:44)
[2023-01-06] MEDS: Cholecalciferol (VIT D3) 1,000 unit TAB PO SCH (09:44)
[2023-01-06] MEDS: Potassium Chlor 10 meq TAB PO SCH (09:44)
[2023-01-06] MEDS: Aspirin EC 81 mg TAB.EC (enteric coated) PO SCH (09:44)
[2023-01-06] MEDS: CMCS:Mirabegron 25 mg ER TAB (NF) PO SCH (09:45)
[2023-01-06] MEDS: SELENIUM 200 MCG PO SCH (09:46)
[2023-01-06] MEDS: Triamcinolone 0.5% OINT 1 TUBE TOPICAL SCH (09:47)
[2023-01-06] MEDS: FLUOCINONIDE 0.05% TOPICAL SCH (09:49)
[2023-01-06 10:44] VITALS: BP 135/75
[2023-01-06 13:42] LABS: Complement C3 129 mg/dL (75 - 175)
[2023-01-07 16:44] LABS: JO-1 Antibody <0.2 U; RNP Antibody, IgG 0.2 U; SS-A/Ro Antibody <0.2 U; SS-B/La Antibody <0.2 U; Scl 70 Ab, IgG, S <0.2 U; Sm (Smith) IgG Antibody <0.2 U
[2023-01-07 20:56] LABS: Immunoglobulin E 85.8 kU/L (<= 214)
== END 2023-01-06 14:01 | disposition home or self-care (01) | DRG 189 ==
LOC: ED 09:28 → EDHOLD 11:17 → SUATTDRO 13:39 → ICU 16:12 → MEDTELE 01-04 17:40
PROVIDERS: ADMIT Student in an Organized Health Care Education/Training Program; ATTEND Internal Medicine

== ENCOUNTER 2023-02-20 09:38 | Inpatient (IN) ==
[2023-02-20 10:24] LABS: ABS Basophils 0.1 10^3/uL (0.0-0.1); ABS Lymphocytes 0.4 10^3/uL (1.0-4.8); ABS Monocytes 0.7 10^3/uL (0.0-1.1); ABS Neutrophils 7.4 10^3/uL (1.5-7.6); ABS Nucleated RBC 0.01 10^3/ul; Hematocrit 37.7 % (38-53); Hemoglobin 12.4 g/dL (13.2-16.3); Lymphocyte % 4.2 %; Mean Corpuscular Hemoglobin 30.6 pg (27-33); Mean Corpuscular Volume 92.7 fL (80-97); Mean Platelet Volume 8.5 fL (7.5-11.2); Nucleated Red Blood Cells % 0.1 %/100WBC (0.0-0.8); Platelet Count 139 10^3/uL (150-450); Red Blood Count 4.07 10^6/uL (4.06-5.63); Red Cell Distribution Width 18.2 % (12-17); White Blood Count 8.5 10^3/uL (3.6-10.2)
[2023-02-20 10:43] LABS: Albumin 3.7 g/dL (3.2-5.2); Albumin/Globulin Ratio 1.5 (1-3); Creatinine, Serum 0.79 mg/dL (0.67-1.17); Globulin 2.5 g/dL (2-4); Total Bilirubin 0.9 mg/dL (0.2-1.0); Total Protein 6.2 g/dL (6.4-8.9); eGFR CKD-EPI 90.9 (>60)
[2023-02-20 11:43] LABS: High Sensitivity Troponin 1 Hr 31 pg/mL (<20)
[2023-02-20] MEDS ORDERED: methylPREDNISolone SOD SUCC 125 mg 2 ML VIAL IV ONE (13:29)
[2023-02-20] MEDS ORDERED: cefTRIAXone 1 gm/50 mL D5W 1 GM/50 ML BAG IV ONE (14:00)
[2023-02-20] MEDS ORDERED: Azithromycin 500 mg/250 ml NS 500 MG/250 ML BAG IVPB ONE (14:01)
[2023-02-20] MEDS ORDERED: Furosemide 20 mg/2 ml IV VIAL IV SLOW PU ONE (15:02)
[2023-02-20] MEDS: Budesonide NEB 0.5 MG/2 ML NEB.SOLN INH SCH (19:22)
[2023-02-20] MEDS: methylPREDNISolone SOD SUCC 40 mg/ml 1 ml VIAL IV SCH (20:14)
[2023-02-21] MEDS: methylPREDNISolone SOD SUCC 40 mg/ml 1 ml VIAL IV SCH ×4 (04:02→22:55)
[2023-02-21 04:23] LABS: ABS Lymphocytes 0.3 10^3/uL (1.0-4.8); ABS Monocytes 0.3 10^3/uL (0.0-1.1); ABS Nucleated RBC 0.01 10^3/ul; Hemoglobin 11.6 g/dL (13.2-16.3); Lymphocyte % 4.2 %; Mean Corpuscular Hemoglobin 30.3 pg (27-33); Mean Corpuscular Hgb Conc 33.3 g/dL (31-36); Mean Corpuscular Volume 91.1 fL (80-97); Nucleated Red Blood Cells % 0.2 %/100WBC (0.0-0.8); Platelet Count 126 10^3/uL (150-450); Red Blood Count 3.84 10^6/uL (4.06-5.63); Red Cell Distribution Width 17.7 % (12-17); White Blood Count 6.6 10^3/uL (3.6-10.2)
[2023-02-21 04:43] LABS: Calcium 8.7 mg/dL (8.6-10.3); Creatinine, Serum 0.72 mg/dL (0.67-1.17); eGFR CKD-EPI 93.5 (>60)
[2023-02-21] MEDS: Budesonide NEB 0.5 MG/2 ML NEB.SOLN INH SCH ×2 (08:01→20:05)
[2023-02-21] MEDS: Fluocinonide 0.05% CM(NF) 60 GM TUBE TOPICAL SCH (08:55)
[2023-02-21] MEDS: NINTEDANIB 100 MG PO SCH (14:22)
[2023-02-21] MEDS: cefTRIAXone 1 gm/50 mL D5W 1 GM/50 ML BAG IV SCH (14:45)
[2023-02-21] MEDS: Azithromycin 500 mg/250 ml NS 500 MG/250 ML BAG IVPB SCH (16:56)
[2023-02-22] MEDS: methylPREDNISolone SOD SUCC 40 mg/ml 1 ml VIAL IV SCH ×4 (04:25→20:44)
[2023-02-22 04:55] LABS: ABS Lymphocytes 0.3 10^3/uL (1.0-4.8); ABS Monocytes 0.4 10^3/uL (0.0-1.1); Hematocrit 35.9 % (38-53); Lymphocyte % 2.9 %; Mean Corpuscular Hemoglobin 30.7 pg (27-33); Mean Corpuscular Hgb Conc 33.5 g/dL (31-36); Mean Corpuscular Volume 91.5 fL (80-97); Mean Platelet Volume 8.4 fL (7.5-11.2); Platelet Count 147 10^3/uL (150-450); Red Blood Count 3.92 10^6/uL (4.06-5.63); White Blood Count 8.7 10^3/uL (3.6-10.2)
[2023-02-22 05:01] LABS: Albumin 3.7 g/dL (3.2-5.2); Albumin/Globulin Ratio 1.6 (1-3); Calcium 8.8 mg/dL (8.6-10.3); Creatinine, Serum 0.57 mg/dL (0.67-1.17); Globulin 2.3 g/dL (2-4); Magnesium 2.3 mg/dL (1.9-2.7); Potassium 4.2 mmol/L (3.5-5.0); Total Bilirubin 0.6 mg/dL (0.2-1.0); eGFR CKD-EPI 100.3 (>60)
[2023-02-22] MEDS: Budesonide NEB 0.5 MG/2 ML NEB.SOLN INH SCH ×2 (07:22→19:17)
[2023-02-22] MEDS: NINTEDANIB 100 MG PO SCH (08:58)
[2023-02-22] MEDS ORDERED: Furosemide 40 mg/4 ml IV VIAL IV ONE (09:03)
[2023-02-22] MEDS: CMC:Selenium 200 mcg TAB (NF) PO SCH (09:51)
[2023-02-22] MEDS: Acetylcysteine 600mgCAP(RENAL) PO SCH ×2 (09:52→20:45)
[2023-02-22] MEDS: Fluocinonide 0.05% CM(NF) 60 GM TUBE TOPICAL SCH (10:06)
[2023-02-22] MEDS: cefTRIAXone 1 gm/50 mL D5W 1 GM/50 ML BAG IV SCH (15:08)
[2023-02-22] MEDS: Azithromycin 500 mg/250 ml NS 500 MG/250 ML BAG IVPB SCH (17:01)
[2023-02-23] MEDS: Levalbuterol 1.25MG/0.5ML NEB.SOL INH SCH ×4 (00:50→19:12)
[2023-02-23] MEDS: methylPREDNISolone SOD SUCC 40 mg/ml 1 ml VIAL IV SCH ×2 (04:28→08:54)
[2023-02-23 04:41] LABS: ABS Lymphocytes 0.2 10^3/uL (1.0-4.8); ABS Monocytes 0.6 10^3/uL (0.0-1.1); ABS Neutrophils 6.5 10^3/uL (1.5-7.6); ABS Nucleated RBC 0.01 10^3/ul; Hematocrit 36.2 % (38-53); Mean Corpuscular Hemoglobin 30.4 pg (27-33); Mean Corpuscular Hgb Conc 33.2 g/dL (31-36); Mean Corpuscular Volume 91.6 fL (80-97); Nucleated Red Blood Cells % 0.1 %/100WBC (0.0-0.8); Platelet Count 146 10^3/uL (150-450); Red Blood Count 3.96 10^6/uL (4.06-5.63); Red Cell Distribution Width 17.8 % (12-17); White Blood Count 7.3 10^3/uL (3.6-10.2)
[2023-02-23 04:56] LABS: Calcium 8.5 mg/dL (8.6-10.3); Creatinine, Serum 0.64 mg/dL (0.67-1.17); Magnesium 2.3 mg/dL (1.9-2.7); Phosphorus 3.3 mg/dL (2.5-5.0); Potassium 3.9 mmol/L (3.5-5.0); eGFR CKD-EPI 96.9 (>60)
[2023-02-23] MEDS: Budesonide NEB 0.5 MG/2 ML NEB.SOLN INH SCH ×2 (07:52→19:12)
[2023-02-23] MEDS: Acetylcysteine 600mgCAP(RENAL) PO SCH ×2 (08:54→20:25)
[2023-02-23] MEDS: CMC:Selenium 200 mcg TAB (NF) PO SCH (08:55)
[2023-02-23] MEDS: NINTEDANIB 100 MG PO SCH (08:56)
[2023-02-23] MEDS: methylPREDNISolone SOD SUCC 1000 MG in NS 0.9% 100 ML IVPB SCH (10:39)
[2023-02-23 10:47] LABS: Albumin 3.6 g/dL (3.2-5.2); Albumin/Globulin Ratio 1.5 (1-3); Direct Bilirubin 0.1 mg/dL (0.03-0.18); Globulin 2.4 g/dL (2-4); Indirect Bilirubin 0.6 mg/dL (0.3-1.0); Total Bilirubin 0.7 mg/dL (0.2-1.0)
[2023-02-23] MEDS ORDERED: Dextrose 50% Syringe 50 ml 25 GM/50 ML SYRINGE IV PUSH PRN (11:43)
[2023-02-23] MEDS: cefTRIAXone 1 gm/50 mL D5W 1 GM/50 ML BAG IV SCH (14:48)
[2023-02-23] MEDS: Azithromycin 500 mg/250 ml NS 500 MG/250 ML BAG IVPB SCH (16:58)
[2023-02-24] MEDS: Levalbuterol 1.25MG/0.5ML NEB.SOL INH SCH ×4 (01:28→18:59)
[2023-02-24 04:32] LABS: ABS Lymphocytes 0.3 10^3/uL (1.0-4.8); ABS Monocytes 0.4 10^3/uL (0.0-1.1); ABS Neutrophils 6.3 10^3/uL (1.5-7.6); ABS Nucleated RBC 0.01 10^3/ul; Hematocrit 36.9 % (38-53); Hemoglobin 12.4 g/dL (13.2-16.3); Lymphocyte % 4.3 %; Mean Corpuscular Hemoglobin 30.7 pg (27-33); Mean Corpuscular Hgb Conc 33.5 g/dL (31-36); Mean Corpuscular Volume 91.6 fL (80-97); Nucleated Red Blood Cells % 0.1 %/100WBC (0.0-0.8); Platelet Count 143 10^3/uL (150-450); Red Blood Count 4.03 10^6/uL (4.06-5.63); Red Cell Distribution Width 17.7 % (12-17)
[2023-02-24 04:54] LABS: Calcium 8.6 mg/dL (8.6-10.3); Creatinine, Serum 0.63 mg/dL (0.67-1.17); Magnesium 2.5 mg/dL (1.9-2.7); Potassium 3.9 mmol/L (3.5-5.0); eGFR CKD-EPI 97.4 (>60)
[2023-02-24] MEDS: Budesonide NEB 0.5 MG/2 ML NEB.SOLN INH SCH ×2 (07:54→18:59)
[2023-02-24] MEDS: Acetylcysteine 600mgCAP(RENAL) PO SCH ×2 (09:02→20:56)
[2023-02-24] MEDS: CMC:Selenium 200 mcg TAB (NF) PO SCH (09:03)
[2023-02-24] MEDS: NINTEDANIB 100 MG PO SCH (09:03)
[2023-02-24] MEDS: methylPREDNISolone SOD SUCC 1000 MG in NS 0.9% 100 ML IVPB SCH (09:04)
[2023-02-24 15:32] LABS: Hepatitis B Surface Antigen Nonreactive (Nonreactive)
[2023-02-24 15:37] LABS: Hepatitis A Ab IgM Negative (Negative)
[2023-02-24 15:38] LABS: Hepatitis B Core IgM Nonreactive (Nonreactive)
[2023-02-24] MEDS: cefTRIAXone 1 gm/50 mL D5W 1 GM/50 ML BAG IV SCH (15:40)
[2023-02-24 15:50] LABS: Hepatitis C Antibody Negative (Negative)
[2023-02-25] MEDS: Levalbuterol 1.25MG/0.5ML NEB.SOL INH SCH ×4 (02:30→20:22)
[2023-02-25 06:43] LABS: ABS Lymphocytes 0.2 10^3/uL (1.0-4.8); ABS Monocytes 0.7 10^3/uL (0.0-1.1); ABS Neutrophils 5.8 10^3/uL (1.5-7.6); ABS Nucleated RBC 0.02 10^3/ul; Hematocrit 36.7 % (38-53); Hemoglobin 12.3 g/dL (13.2-16.3); Lymphocyte % 2.8 %; Mean Corpuscular Hemoglobin 30.6 pg (27-33); Mean Corpuscular Hgb Conc 33.4 g/dL (31-36); Mean Corpuscular Volume 91.5 fL (80-97); Mean Platelet Volume 8.8 fL (7.5-11.2); Nucleated Red Blood Cells % 0.3 %/100WBC (0.0-0.8); Platelet Count 155 10^3/uL (150-450); Red Blood Count 4.01 10^6/uL (4.06-5.63); Red Cell Distribution Width 17.6 % (12-17); White Blood Count 6.8 10^3/uL (3.6-10.2)
[2023-02-25] MEDS: Budesonide NEB 0.5 MG/2 ML NEB.SOLN INH SCH ×2 (07:02→20:21)
[2023-02-25 07:31] LABS: Potassium 4.5 mmol/L (3.5-5.0)
[2023-02-25 07:33] LABS: Albumin 3.5 g/dL (3.2-5.2); Albumin/Globulin Ratio 1.4 (1-3); Calcium 8.3 mg/dL (8.6-10.3); Creatinine, Serum 0.65 mg/dL (0.67-1.17); Globulin 2.5 g/dL (2-4); Magnesium 2.5 mg/dL (1.9-2.7); Total Bilirubin 0.7 mg/dL (0.2-1.0); eGFR CKD-EPI 96.4 (>60)
[2023-02-25] MEDS: Acetylcysteine 600mgCAP(RENAL) PO SCH ×2 (09:29→20:39)
[2023-02-25] MEDS: CMC:Selenium 200 mcg TAB (NF) PO SCH (09:30)
[2023-02-25] MEDS: NINTEDANIB 100 MG PO SCH (09:31)
[2023-02-25] MEDS: methylPREDNISolone SOD SUCC 1000 MG in NS 0.9% 100 ML IVPB SCH (09:33)
[2023-02-25] MEDS: cefTRIAXone 1 gm/50 mL D5W 1 GM/50 ML BAG IV SCH (15:24)
[2023-02-26 04:56] LABS: ABS Lymphocytes 0.1 10^3/uL (1.0-4.8); ABS Monocytes 0.5 10^3/uL (0.0-1.1); ABS Neutrophils 6.5 10^3/uL (1.5-7.6); ABS Nucleated RBC 0.01 10^3/ul; Eosinophil % 0.3 %; Hematocrit 37.7 % (38-53); Hemoglobin 12.5 g/dL (13.2-16.3); Lymphocyte % 1.8 %; Mean Corpuscular Hemoglobin 30.5 pg (27-33); Mean Corpuscular Hgb Conc 33.1 g/dL (31-36); Mean Corpuscular Volume 92.4 fL (80-97); Mean Platelet Volume 8.2 fL (7.5-11.2); Nucleated Red Blood Cells % 0.2 %/100WBC (0.0-0.8); Platelet Count 147 10^3/uL (150-450); Red Blood Count 4.08 10^6/uL (4.06-5.63); Red Cell Distribution Width 17.6 % (12-17); White Blood Count 7.2 10^3/uL (3.6-10.2)
[2023-02-26 05:17] LABS: Calcium 8.6 mg/dL (8.6-10.3); Creatinine, Serum 0.63 mg/dL (0.67-1.17); Magnesium 2.4 mg/dL (1.9-2.7); Potassium 4.7 mmol/L (3.5-5.0); eGFR CKD-EPI 97.4 (>60)
[2023-02-26] MEDS: Budesonide NEB 0.5 MG/2 ML NEB.SOLN INH SCH ×2 (07:29→19:27)
[2023-02-26] MEDS: Levalbuterol 1.25MG/0.5ML NEB.SOL INH SCH ×2 (07:29→19:26)
[2023-02-26] MEDS: Acetylcysteine 600mgCAP(RENAL) PO SCH ×2 (09:16→21:23)
[2023-02-26] MEDS: NINTEDANIB 100 MG PO SCH (09:16)
[2023-02-26] MEDS: CMC:Selenium 200 mcg TAB (NF) PO SCH (09:17)
[2023-02-26] MEDS: methylPREDNISolone SOD SUCC 40 mg/ml 1 ml VIAL IV SCH (11:25)
[2023-02-26] MEDS ORDERED: Dextrose 50% Syringe 50 ml 25 GM/50 ML SYRINGE IV PUSH PRN (11:33)
[2023-02-26] MEDS: cefTRIAXone 1 gm/50 mL D5W 1 GM/50 ML BAG IV SCH (15:41)
[2023-02-26] MEDS ORDERED: Furosemide 40 mg/4 ml IV VIAL IV ONE (19:43)
[2023-02-27] MEDS ORDERED: Albuterol/Ipratropium NEB.SOL (2.5/0.5 MG) 3 ML NEB.SOLN INH PRN (01:55)
[2023-02-27 04:40] LABS: Hematocrit 40.3 % (38-53); Hemoglobin 13.6 g/dL (13.2-16.3); Mean Corpuscular Hemoglobin 31.1 pg (27-33); Mean Corpuscular Hgb Conc 33.7 g/dL (31-36); Mean Corpuscular Volume 92.2 fL (80-97); Mean Platelet Volume 7.9 fL (7.5-11.2); Platelet Count 148 10^3/uL (150-450); Red Blood Count 4.37 10^6/uL (4.06-5.63); White Blood Count 8.4 10^3/uL (3.6-10.2)
[2023-02-27 05:05] LABS: Blood Urea Nitrogen 23 mg/dL (6-24); CO2 Carbon Dioxide 43 mmol/L (22-32); Calcium 8.8 mg/dL (8.6-10.3); Chloride 96 mmol/L (101-111); Creatinine, Serum 0.74 mg/dL (0.67-1.17); Glucose 262 mg/dL (70-100); Magnesium 2.4 mg/dL (1.9-2.7); Potassium 4.3 mmol/L (3.5-5.0); Sodium 136 mmol/L (135-145); eGFR CKD-EPI 92.7 (>60)
[2023-02-27] MEDS: Budesonide NEB 0.5 MG/2 ML NEB.SOLN INH SCH ×2 (07:01→18:57)
[2023-02-27] MEDS: Levalbuterol 1.25MG/0.5ML NEB.SOL INH SCH ×2 (07:01→18:57)
[2023-02-27 07:14] LABS: ABS Lymphocytes 0.4 10^3/uL (1.0-4.8); ABS Nucleated RBC 0.02 10^3/ul; Eosinophil % 0.6 %; Lymphocyte % 4.3 %; Nucleated Red Blood Cells % 0.2 %/100WBC (0.0-0.8); RBC Morphology Normal (Normal)
[2023-02-27] MEDS: CMC:Selenium 200 mcg TAB (NF) PO SCH (08:53)
[2023-02-27] MEDS: Acetylcysteine 600mgCAP(RENAL) PO SCH ×2 (08:53→20:44)
[2023-02-27] MEDS: NINTEDANIB 100 MG PO SCH (08:53)
[2023-02-27] MEDS: methylPREDNISolone SOD SUCC 40 mg/ml 1 ml VIAL IV SCH (08:54)
[2023-02-27] MEDS: cefTRIAXone 1 gm/50 mL D5W 1 GM/50 ML BAG IV SCH (15:14)
[2023-02-27] MEDS: Morphine 2 MG/ML SYRINGE IV PRN (17:47)
[2023-02-28] MEDS: Morphine 2 MG/ML SYRINGE IV PRN ×3 (01:24→21:25)
[2023-02-28 05:41] LABS: ABS Lymphocytes 0.5 10^3/uL (1.0-4.8); ABS Monocytes 0.9 10^3/uL (0.0-1.1); ABS Neutrophils 6.5 10^3/uL (1.5-7.6); ABS Nucleated RBC 0.01 10^3/ul; Eosinophil % 0.1 %; Hematocrit 40.1 % (38-53); Hemoglobin 13.4 g/dL (13.2-16.3); Lymphocyte % 6.1 %; Mean Corpuscular Hemoglobin 30.6 pg (27-33); Mean Corpuscular Hgb Conc 33.4 g/dL (31-36); Mean Corpuscular Volume 91.7 fL (80-97); Nucleated Red Blood Cells % 0.2 %/100WBC (0.0-0.8); Red Blood Count 4.37 10^6/uL (4.06-5.63); White Blood Count 7.9 10^3/uL (3.6-10.2)
[2023-02-28 06:25] LABS: Platelet Count Platelets clumped. 10^3/uL (150-450)
[2023-02-28] MEDS: Budesonide NEB 0.5 MG/2 ML NEB.SOLN INH SCH ×2 (07:39→19:45)
[2023-02-28] MEDS: Levalbuterol 1.25MG/0.5ML NEB.SOL INH SCH ×2 (07:39→19:45)
[2023-02-28 07:53] LABS: Blood Urea Nitrogen 21 mg/dL (6-24); CO2 Carbon Dioxide 40 mmol/L (22-32); Calcium 8.4 mg/dL (8.6-10.3); Chloride 97 mmol/L (101-111); Creatinine, Serum 0.55 mg/dL (0.67-1.17); Glucose 116 mg/dL (70-100); Sodium 136 mmol/L (135-145); eGFR CKD-EPI 101.4 (>60)
[2023-02-28 09:09] LABS: Magnesium 2.3 mg/dL (1.9-2.7); Potassium Redraw 4.6 mmol/L (3.5-5.0)
[2023-02-28] MEDS: Acetylcysteine 600mgCAP(RENAL) PO SCH ×2 (09:36→21:24)
[2023-02-28] MEDS: NINTEDANIB 100 MG PO SCH (09:36)
[2023-02-28] MEDS: methylPREDNISolone SOD SUCC 40 mg/ml 1 ml VIAL IV SCH (09:37)
[2023-02-28] MEDS: CMC:Selenium 200 mcg TAB (NF) PO SCH (09:37)
[2023-03-01 05:26] LABS: ABS Lymphocytes 0.4 10^3/uL (1.0-4.8); ABS Monocytes 1.1 10^3/uL (0.0-1.1); ABS Neutrophils 6.8 10^3/uL (1.5-7.6); ABS Nucleated RBC 0.01 10^3/ul; Eosinophil % 0.1 %; Hematocrit 41.9 % (38-53); Lymphocyte % 5.3 %; Mean Corpuscular Hemoglobin 31.1 pg (27-33); Mean Corpuscular Hgb Conc 33.5 g/dL (31-36); Nucleated Red Blood Cells % 0.2 %/100WBC (0.0-0.8); Platelet Count 143 10^3/uL (150-450); Red Cell Distribution Width 18.2 % (12-17); White Blood Count 8.4 10^3/uL (3.6-10.2)
[2023-03-01 06:09] LABS: Blood Urea Nitrogen 20 mg/dL (6-24); CO2 Carbon Dioxide 36 mmol/L (22-32); Calcium 7.5 mg/dL (8.6-10.3); Chloride 101 mmol/L (101-111); Creatinine, Serum 0.48 mg/dL (0.67-1.17); Glucose 149 mg/dL (70-100); Sodium 137 mmol/L (135-145); eGFR CKD-EPI 105.7 (>60)
[2023-03-01] MEDS: Budesonide NEB 0.5 MG/2 ML NEB.SOLN INH SCH ×2 (07:56→19:53)
[2023-03-01] MEDS: Levalbuterol 1.25MG/0.5ML NEB.SOL INH SCH ×2 (07:56→19:53)
[2023-03-01] MEDS: Acetylcysteine 600mgCAP(RENAL) PO SCH ×2 (09:43→21:55)
[2023-03-01] MEDS: methylPREDNISolone SOD SUCC 40 mg/ml 1 ml VIAL IV SCH (09:43)
[2023-03-01] MEDS: CMC:Selenium 200 mcg TAB (NF) PO SCH (09:43)
[2023-03-01] MEDS: NINTEDANIB 100 MG PO SCH (09:44)
[2023-03-01 10:56] LABS: Magnesium 2.2 mg/dL (1.9-2.7)
[2023-03-01] MEDS: Morphine 2 MG/ML SYRINGE IV PRN ×2 (11:16→22:47)
[2023-03-01] MEDS: Sulfamethox/Trimethoprim DS TAB 800/160 mg PO SCH (13:44)
[2023-03-02 07:09] LABS: ABS Lymphocytes 0.5 10^3/uL (1.0-4.8); ABS Monocytes 0.8 10^3/uL (0.0-1.1); ABS Neutrophils 7.2 10^3/uL (1.5-7.6); ABS Nucleated RBC 0.01 10^3/ul; Hematocrit 41.7 % (38-53); Hemoglobin 13.8 g/dL (13.2-16.3); Lymphocyte % 6.3 %; Mean Corpuscular Hemoglobin 30.9 pg (27-33); Mean Corpuscular Hgb Conc 33.1 g/dL (31-36); Mean Corpuscular Volume 93.4 fL (80-97); Mean Platelet Volume 7.8 fL (7.5-11.2); Nucleated Red Blood Cells % 0.1 %/100WBC (0.0-0.8); Platelet Count 134 10^3/uL (150-450); Red Blood Count 4.46 10^6/uL (4.06-5.63); Red Cell Distribution Width 17.7 % (12-17); White Blood Count 8.6 10^3/uL (3.6-10.2)
[2023-03-02 07:14] LABS: Calcium 9.1 mg/dL (8.6-10.3); Creatinine, Serum 0.56 mg/dL (0.67-1.17); Magnesium 2.2 mg/dL (1.9-2.7); Potassium 4.7 mmol/L (3.5-5.0); eGFR CKD-EPI 100.9 (>60)
[2023-03-02] MEDS: Levalbuterol 1.25MG/0.5ML NEB.SOL INH SCH (07:27)
[2023-03-02] MEDS: Budesonide NEB 0.5 MG/2 ML NEB.SOLN INH SCH ×2 (07:28→20:58)
[2023-03-02] MEDS: Morphine ORAL CONCENTRATE 5 MG/0.25 ML ORAL.SYRIN PO PRN ×2 (08:52→13:08)
[2023-03-02] MEDS: CMC:Selenium 200 mcg TAB (NF) PO SCH (09:41)
[2023-03-02] MEDS: Sulfamethox/Trimethoprim DS TAB 800/160 mg PO SCH (09:41)
[2023-03-02] MEDS: NINTEDANIB 100 MG PO SCH (09:42)
[2023-03-02] MEDS: Acetylcysteine 600mgCAP(RENAL) PO SCH (10:38)
[2023-03-02] MEDS ORDERED: Morphine ORAL CONCENTRATE 5 MG/0.25 ML ORAL.SYRIN PO ONE (14:11)
[2023-03-02] MEDS ORDERED: Morphine ORAL CONCENTRATE 5 MG/0.25 ML ORAL.SYRIN PO PRN (15:46)
[2023-03-02] MEDS: Morphine ORAL CONCENTRATE 5 MG/0.25 ML ORAL.SYRIN PO SCH ×2 (17:21→21:23)
[2023-03-03] MEDS: Morphine ORAL CONCENTRATE 5 MG/0.25 ML ORAL.SYRIN PO SCH ×3 (02:17→10:53)
[2023-03-03 05:57] VITALS: BP 133/79
[2023-03-03] MEDS: Budesonide NEB 0.5 MG/2 ML NEB.SOLN INH SCH (06:57)
[2023-03-03] MEDS: NINTEDANIB 100 MG PO SCH (08:59)
[2023-03-03] MEDS: CMC:Selenium 200 mcg TAB (NF) PO SCH (08:59)
== END 2023-03-03 11:00 | disposition home or self-care (01) | DRG 189 ==
LOC: ED 09:38 → SUATTDRO 14:04 → EDHOLD 14:04 → ICU 15:22 → MED 03-01 22:28
PROVIDERS: ADMIT Student in an Organized Health Care Education/Training Program; ATTEND Internal Medicine

== ENCOUNTER 2023-09-02 09:38 | Inpatient (IN) ==
[2023-09-02] MEDS ORDERED: Magnesium Sulfate 2 gm BAG 2 GM/50 ML BAG ONE (09:43)
[2023-09-02] MEDS ORDERED: Levalbuterol 1.25MG/0.5ML NEB.SOL ONE (09:47)
[2023-09-02] MEDS: Magnesium Sulfate 2 gm BAG 2 GM/50 ML BAG IVPB ONE (10:06)
[2023-09-02] MEDS: Levalbuterol 1.25MG/0.5ML NEB.SOL INH ONE (10:07)
[2023-09-02 10:09] LABS: PCO2 Arterial 55 mmHg (35-45); PO2 Arterial 125 mmHg (80-100)
[2023-09-02] MEDS ORDERED: Acetaminophen IV 1 GM/100ML 1,000 MG/100 ML BAG IV ONE (10:12)
[2023-09-02 10:13] LABS: ABS Lymphocytes 0.9 10^3/uL (1.0-4.8); ABS Monocytes 0.2 10^3/uL (0.0-1.1); ABS Neutrophils 6.5 10^3/uL (1.5-7.6); ABS Nucleated RBC 0.02 10^3/ul; Hematocrit 43.2 % (38-53); Hemoglobin 13.7 g/dL (13.2-16.3); Lymphocyte % 11.4 %; Mean Corpuscular Hgb Conc 31.8 g/dL (31-36); Mean Corpuscular Volume 97.6 fL (80-97); Mean Platelet Volume 8.9 fL (7.5-11.2); Nucleated Red Blood Cells % 0.2 %/100WBC (0.0-0.8); Platelet Count 162 10^3/uL (150-450); Red Blood Count 4.43 10^6/uL (4.06-5.63); Red Cell Distribution Width 15.8 % (12-17); White Blood Count 7.5 10^3/uL (3.6-10.2)
[2023-09-02] MEDS: Acetaminophen IV 1 GM/100ML 1,000 MG/100 ML BAG IV ONE (10:25)
[2023-09-02] MEDS: cefTRIAXone 1 gm/50 mL D5W 1 GM/50 ML BAG IV ONE (10:25)
[2023-09-02 10:27] LABS: Activated Partial Thrombo Time 23.4 seconds (26.0-38.0); INR 1.17 (0.83-1.13)
[2023-09-02 10:35] LABS: Albumin 4.3 g/dL (3.2-5.2); Albumin/Globulin Ratio 1.9 (1-3); C Reactive Protein 61.68 mg/L (<8.01); Calcium 9.5 mg/dL (8.6-10.3); Creatinine, Serum 1.06 mg/dL (0.67-1.17); Globulin 2.3 g/dL (2-4); Potassium 3.8 mmol/L (3.5-5.0); Total Protein 6.6 g/dL (6.4-8.9); eGFR CKD-EPI 71.4 (>60)
[2023-09-02 11:37] LABS: High Sensitivity Troponin 1 Hr 125 pg/mL (<20)
[2023-09-02] MEDS: Iodixanol (CONTRAST) 320 MG/ML 100 ML SDV IV ONE (11:39)
[2023-09-02] MEDS ORDERED: Dextrose 50% Syringe 50 ml 25 GM/50 ML SYRINGE IV PUSH PRN (12:19)
[2023-09-02] MEDS ORDERED: Morphine 4 MG/ML VIAL (1 ml) IV PRN (13:16)
[2023-09-02] MEDS: Aspirin EC 81 mg TAB.EC (enteric coated) PO SCH (13:41)
[2023-09-02] MEDS: NINTEDANIB 100 MG PO SCH (13:41)
[2023-09-02] MEDS: Morphine 2 MG/ML SYRINGE IV PRN (13:42)
[2023-09-02] MEDS: Lactated Ringers 1000 ml BAG 1,000 ML IV SCH (13:54)
[2023-09-02 18:05] LABS: Urine Appearance Turbid; Urine Bacteria 1+ /HPF (Absent); Urine Bilirubin Negative (Negative); Urine Blood 2+ (Negative); Urine Color Yellow; Urine Glucose Trace (Negative); Urine Ketones Negative (Negative); Urine Nitrite Negative (Negative); Urine Protein 3+ (>=300 mg/dL) (Negative); Urine Red Blood Cell 3+(>10/hpf) /HPF (0-Trace); Urine Specific Gravity >1.050 (1.002-1.030); Urine Uric Acid Crystals Present /HPF (Absent); Urine Urobilinogen Negative (Negative); Urine White Blood Cell Trace(0-5/hpf) /HPF (0-Trace)
[2023-09-02] MEDS: Budesonide NEB 0.5 MG/2 ML NEB.SOLN INH SCH (19:39)
[2023-09-03] MEDS: Lactated Ringers 1000 ml BAG 1,000 ML IV SCH ×2 (00:15→06:25)
[2023-09-03 04:46] LABS: ABS Lymphocytes 0.2 10^3/uL (1.0-4.8); ABS Monocytes 0.3 10^3/uL (0.0-1.1); ABS Neutrophils 7.9 10^3/uL (1.5-7.6); Hematocrit 37.3 % (38-53); Hemoglobin 12.3 g/dL (13.2-16.3); Lymphocyte % 2.3 %; Mean Corpuscular Hemoglobin 31.4 pg (27-33); Mean Corpuscular Hgb Conc 32.9 g/dL (31-36); Mean Corpuscular Volume 95.5 fL (80-97); Mean Platelet Volume 8.5 fL (7.5-11.2); Platelet Count 116 10^3/uL (150-450); Red Blood Count 3.91 10^6/uL (4.06-5.63); Red Cell Distribution Width 15.8 % (12-17); White Blood Count 8.4 10^3/uL (3.6-10.2)
[2023-09-03 05:05] LABS: Calcium 8.8 mg/dL (8.6-10.3); Creatinine, Serum 1.21 mg/dL (0.67-1.17); Magnesium 2.5 mg/dL (1.9-2.7); Potassium 3.6 mmol/L (3.5-5.0); eGFR CKD-EPI 60.9 (>60)
[2023-09-03] MEDS: Potassium Chlor 20 meq TAB.ER PO ONE (08:50)
[2023-09-03] MEDS: CMCS: Mirabegron 25 mg ER TAB (NF) PO SCH (09:06)
[2023-09-03] MEDS: Furosemide 20 mg/2 ml IV VIAL IV SLOW PU ONE (10:25)
[2023-09-03] MEDS: cefTRIAXone 1 gm/50 mL D5W 1 GM/50 ML BAG IV SCH (10:32)
[2023-09-04 06:19] LABS: ABS Lymphocytes 0.2 10^3/uL (1.0-4.8); ABS Monocytes 0.3 10^3/uL (0.0-1.1); ABS Neutrophils 7.5 10^3/uL (1.5-7.6); ABS Nucleated RBC 0.01 10^3/ul; Hemoglobin 11.9 g/dL (13.2-16.3); Mean Corpuscular Hemoglobin 31.5 pg (27-33); Mean Corpuscular Volume 95.3 fL (80-97); Mean Platelet Volume 8.3 fL (7.5-11.2); Nucleated Red Blood Cells % 0.1 %/100WBC (0.0-0.8); Platelet Count 107 10^3/uL (150-450); Red Blood Count 3.77 10^6/uL (4.06-5.63); Red Cell Distribution Width 15.6 % (12-17)
[2023-09-04 07:16] LABS: Calcium 8.4 mg/dL (8.6-10.3); Creatinine, Serum 0.82 mg/dL (0.67-1.17); Magnesium 2.4 mg/dL (1.9-2.7); eGFR CKD-EPI 89.4 (>60)
[2023-09-04] MEDS: Insulin GLARGINE 100 un/ml 10 ml VIAL SUBCUT SCH (21:15)
[2023-09-05 08:22] LABS: ABS Lymphocytes 0.2 10^3/uL (1.0-4.8); ABS Monocytes 0.4 10^3/uL (0.0-1.1); ABS Neutrophils 7.5 10^3/uL (1.5-7.6); ABS Nucleated RBC 0.01 10^3/ul; Hematocrit 37.3 % (38-53); Hemoglobin 12.3 g/dL (13.2-16.3); Lymphocyte % 2.1 %; Mean Corpuscular Hemoglobin 31.2 pg (27-33); Mean Corpuscular Hgb Conc 32.9 g/dL (31-36); Mean Corpuscular Volume 94.6 fL (80-97); Nucleated Red Blood Cells % 0.1 %/100WBC (0.0-0.8); Platelet Count 116 10^3/uL (150-450); Red Blood Count 3.94 10^6/uL (4.06-5.63); Red Cell Distribution Width 15.2 % (12-17)
[2023-09-05 09:06] LABS: Anion Gap 4 mmol/L (2-16); Blood Urea Nitrogen 20 mg/dL (6-24); CO2 Carbon Dioxide 41 mmol/L (22-32); Calcium 8.7 mg/dL (8.6-10.3); Chloride 98 mmol/L (101-111); Glucose 155 mg/dL (70-100); Sodium 143 mmol/L (135-145); eGFR CKD-EPI 93.7 (>60)
[2023-09-05 10:44] LABS: Magnesium 2.3 mg/dL (1.9-2.7); Potassium Redraw 3.9 mmol/L (3.5-5.0)
[2023-09-06 07:30] LABS: ABS Lymphocytes 0.4 10^3/uL (1.0-4.8); ABS Monocytes 0.7 10^3/uL (0.0-1.1); ABS Neutrophils 6.9 10^3/uL (1.5-7.6); Hematocrit 38.8 % (38-53); Hemoglobin 12.5 g/dL (13.2-16.3); Lymphocyte % 5.3 %; Mean Corpuscular Hemoglobin 30.4 pg (27-33); Mean Corpuscular Hgb Conc 32.1 g/dL (31-36); Mean Corpuscular Volume 94.7 fL (80-97); Nucleated Red Blood Cells % 0.1 %/100WBC (0.0-0.8); Platelet Count 124 10^3/uL (150-450); Red Cell Distribution Width 15.6 % (12-17); White Blood Count 8.1 10^3/uL (3.6-10.2)
[2023-09-06 08:27] LABS: Calcium 8.6 mg/dL (8.6-10.3); Creatinine, Serum 0.79 mg/dL (0.67-1.17); Potassium 3.8 mmol/L (3.5-5.0); eGFR CKD-EPI 90.4 (>60)
[2023-09-06] MEDS: Insulin GLARGINE 100 un/ml 10 ml VIAL SUBCUT SCH (21:09)
[2023-09-07 08:32] LABS: Anion Gap 6 mmol/L (2-16); Blood Urea Nitrogen 21 mg/dL (6-24); CO2 Carbon Dioxide 35 mmol/L (22-32); Calcium 8.7 mg/dL (8.6-10.3); Chloride 99 mmol/L (101-111); Glucose 181 mg/dL (70-100); Magnesium 2.5 mg/dL (1.9-2.7); Sodium 140 mmol/L (135-145); eGFR CKD-EPI 98.2 (>60)
[2023-09-07 08:51] LABS: Potassium, Whole Blood 4.5 mmol/L (3.4-4.5)
[2023-09-07] MEDS: Magnesium Hydroxide LIQ 30 ML UDC PO PRN (14:48)
[2023-09-07] MEDS: Polyethylene Glycol 3350 17 GM PACKET PO PRN (14:49)
[2023-09-07] MEDS: Senna TAB 8.6 mg TAB PO PRN (14:49)
[2023-09-07] MEDS: Magnesium Hydroxide LIQ 30 ML UDC PO SCH (21:45)
[2023-09-08 10:32] VITALS: BP 106/90
== END 2023-09-08 14:00 | DRG 189 ==
LOC: ED 09:38 → SUATTDRO 11:05 → EDHOLD 11:05 → ICU 11:34 → MEDTELE 09-03 12:26
PROVIDERS: ADMIT Internal Medicine Critical Care Medicine; ATTEND Internal Medicine